=== PATIENT | male | born 1945 | race Caucasian/White ===

== ENCOUNTER → 2016-11-25 | Outpatient (CLI) | payer BC | END | disposition home or self-care (01) | LOC: RADPETMAIN 13:30 | PROVIDERS: ATTEND Internal Medicine | DX: Z53.9 Procedure and treatment not carried out, unspecified reason (principal) ==

== ENCOUNTER 2016-11-27 11:45 | Inpatient (IN) | payer BC, MEDICARE ==
[2016-11-27] MEDS ORDERED: HYDROmorphone 1 MG/ML 1 ML SYRINGE IVP STA (12:52)
[2016-11-27] MEDS ORDERED: SODIUM CHLORIDE 0.9% 500 ML IV STA (12:52)
[2016-11-27] MEDS ORDERED: BISACODYL 5 MG TABLET.DR PO PRN (13:15)
[2016-11-27] MEDS ORDERED: ONDANSETRON 4 MG/2 ML VIAL IVP PRN (13:15)
[2016-11-27] MEDS ORDERED: HYDROmorphone 1 MG/ML 1 ML SYRINGE IV PRN (13:15)
[2016-11-27] MEDS ORDERED: NALOXONE 0.4 MG/ML 1 ML VIAL IV PRN (13:15)
[2016-11-27] MEDS ORDERED: oxyCODONE-APAP 5-325MG 1 EACH TAB PO PRN (13:15)
--- NOTE | 2016-11-27 13:15 | ED ---
Back Pain HPI - General Chief Complaint: Back Pain/Injury Stated Complaint: back pain Source: patient Limitations: no limitations - History of Present Illness Initial Comments: 71-year-old male presenting for evaluation of low back pain and left thigh pain. Patient was recently diagnosed with lytic lesions to his lumbar spine and scapula and metastatic lesions to the liver and lung. He is continued to have worsening pain since these diagnoses have been made. The patient called his primary care physician Dr. Schneider who after discussion with his Hem/Onc specialist Dr. Velarde determined that he should be admitted for pain management, PET scan, and possible initiation of radiation treatment. He denies LE weakness, bladder/bowel incontinence, saddle anesthesia, fever, chills. - Related Data Home Medications Medication Instructions Recorded Confirmed Aspirin EC [Ecotrin Low Dose] 162 mg PO DAILY 11/27/16 11/27/16 Carvedilol [Coreg] 3.125 mg PO BID 11/27/16 11/27/16 Cyclobenzaprine [Flexeril] 10 mg PO TID PRN 11/27/16 11/27/16 Lisinopril [Zestril] 5 mg PO DAILY 11/27/16 11/27/16 Morphine Sulfate [Morphine Sulfate 50 mg PO Q4H PRN 11/27/16 11/27/16 Oral Solution] oxyCODONE-APAP 7.5-325MG [Percocet 1 tab PO Q4H PRN 11/27/16 11/27/16 7.5-325 mg] Allergies Allergy/AdvReac Type Severity Reaction Status Date / Time No Known Allergies Allergy Verified 11/27/16 12:04 Review of Systems ROS Statement: Those systems with pertinent positive or pertinent negative responses have been documented in the HPI. ROS Other: All systems not noted in ROS Statement are negative. Constitutional: Denies: fever, chills Eyes: Denies: eye pain, eye discharge ENT: Denies: ear pain, throat pain Respiratory: Denies: cough, dyspnea Cardiovascular: Denies: chest pain, palpitations Endocrine: Denies: fatigue, heat or cold intolerance Gastrointestinal: Denies: abdominal pain, nausea, vomiting Genitourinary: Denies: urgency, dysuria Musculoskeletal: Reports: arthralgia (back, bilateral hips), myalgia (left thigh ). Denies: back pain Skin: Denies: rash, lesions Neurological: Denies: headache, weakness Psychiatric: Denies: anxiety, depression Hematological/Lymphatic: Denies: easy bleeding, easy bruising Past Medical History Past Medical History: Cancer, Diabetes Mellitus, Hyperlipidemia, Hypertension Additional Past Medical History / Comment(s): back pain History of Any Multi-Drug Resistant Organisms: None Reported Past Surgical History: Heart Catheterization With Stent, Hernia Repair Additional Past Surgical History / Comment(s): double hernia surgery Past Psychological History: No Psychological Hx Reported Smoking Status: Former smoker Past Alcohol Use History: Occasional Past Drug Use History: None Reported General Exam Limitations: no limitations General appearance: alert, in no apparent distress Head exam: Present: atraumatic, normocephalic, normal inspection Eye exam: Present: normal appearance, PERRL, EOMI. Absent: scleral icterus, conjunctival injection, periorbital swelling ENT exam: Present: normal exam, mucous membranes moist Neck exam: Present: normal inspection. Absent: tenderness, meningismus, lymphadenopathy Respiratory exam: Present: normal lung sounds bilaterally. Absent: respiratory distress, wheezes, rales, rhonchi, stridor Cardiovascular Exam: Present: regular rate, normal rhythm, normal heart sounds. Absent: systolic murmur, diastolic murmur, rubs, gallop, clicks GI/Abdominal exam: Present: soft, normal bowel sounds. Absent: distended, tenderness, guarding, rebound, rigid Rectal exam: Present: deferred Extremities exam: Present: normal inspection, full ROM, normal capillary refill. Absent: tenderness, pedal edema, joint swelling, calf tenderness Back exam: Present: full ROM, tenderness, paraspinal tenderness Neurological exam: Present: alert, oriented X3, CN II-XII intact Psychiatric exam: Present: normal affect, normal mood Skin exam: Present: warm, dry, intact, normal color. Absent: rash Course Vital Signs 11/27/16 11/27/16 11/27/16 11:51 12:13 13:30 Temperature 97.5 F L 97.3 F L 98.1 F Pulse Rate 118 H 116 H 112 H Respiratory 18 24 20 Rate Blood Pressure 133/75 140/70 126/59 O2 Sat by Pulse 95 94 L 89 L Oximetry Medical Decision Making - Medical Decision Making 71-year-old male recently diagnosed with metastases to the lumbar spine, liver, lung, and right scapula presented for evaluation of worsening low back pain with radiation to the hips and left thigh. After discussion with his primary care physician Dr. Schneider it was determined that he would be admitted for further treatment via pain control and radiation therapy as well as evaluation with PET scan. Pt pain controlled and admitted to Dr. Ken. Admission order placed and bed request submitted. - Lab Data Result diagrams: 11/27/16 13:20 11/27/16 13:20 Lab Results 11/27/16 11/27/16 Range/Units 13:20 13:20 WBC 13.6 H (3.8-10.6) k/uL RBC 5.26 (4.30-5.90) m/uL Hgb 14.8 (13.0-17.5) gm/dL Hct 45.8 (39.0-53.0) % MCV 86.9 (80.0-100.0) fL MCH 28.1 (25.0-35.0) pg MCHC 32.4 (31.0-37.0) g/dL RDW 14.4 (11.5-15.5) % Plt Count 329 (150-450) k/uL Neutrophils % 78 % Lymphocytes % 13 % Monocytes % 6 % Eosinophils % 0 % Basophils % 1 % Neutrophils # 10.6 H (1.3-7.7) k/uL Lymphocytes # 1.7 (1.0-4.8) k/uL Monocytes # 0.8 (0-1.0) k/uL Eosinophils # 0.1 (0-0.7) k/uL Basophils # 0.2 (0-0.2) k/uL Sodium 135 L (137-145) mmol/L Potassium 5.6 H (3.5-5.1) mmol/L Chloride 97 L (98-107) mmol/L Carbon Dioxide 22 (22-30) mmol/L Anion Gap 16 mmol/L BUN 26 H (9-20) mg/dL Creatinine 0.92 (0.66-1.25) mg/dL Est GFR (MDRD) Af Amer >60 (>60 ml/min/1.73 sqM) Est GFR (MDRD) Non-Af >60 (>60 ml/min/1.73 sqM) Glucose 322 H (74-99) mg/dL Calcium 10.6 H (8.4-10.2) mg/dL Total Bilirubin 1.1 (0.2-1.3) mg/dL AST 121 H (17-59) U/L ALT 190 H (21-72) U/L Alkaline Phosphatase 209 H (38-126) U/L Total Protein 7.8 (6.3-8.2) g/dL Albumin 4.5 (3.5-5.0) g/dL 11/27/16 13:54 EKG shows sinus tachycardia with ventricular rate of 108, SCOTTY 156, QRS 112, QT/ QTC 346/463. Disposition Clinical Impression: Intractable low back pain Disposition: ADMITTED IP TO THIS HOSP Referrals: Aramis Schneider MD [Primary Care Provider] - 1-2 days Decision to Admit Reason: Admit from [facility] Decision Date: 11/27/16 Decision Time: 13:14
[2016-11-27 13:39] LABS: Basophils # (A) 0.2 k/uL (0-0.2); Basophils % (A) 1 %; CH 29.3; CHCM 33.9; Eosinophils # (A) 0.1 k/uL (0-0.7); Eosinophils % (A) 0 %; HCT 45.8 % (39.0-53.0); HDW 2.43; HGB 14.8 gm/dL (13.0-17.5); Luc # (Auto) 0.24; Luc % (Auto) 2; Lymphocytes # (A) 1.7 k/uL (1.0-4.8); Lymphocytes % (A) 13 %; MCH 28.1 pg (25.0-35.0); MCHC 32.4 g/dL (31.0-37.0); MCV 86.9 fL (80.0-100.0); Mean Platelet Volume 7.6; Monocytes # (A) 0.8 k/uL (0-1.0); Monocytes % (A) 6 %; Neutrophils # (A) 10.6 k/uL (1.3-7.7); Neutrophils % (A) 78 %; RBC 5.26 m/uL (4.30-5.90); RDW 14.4 % (11.5-15.5); WBC 13.6 k/uL (3.8-10.6); WBC (Perox) 12.81
[2016-11-27 13:48] LABS: ALT 190 U/L (21-72); AST 121 U/L (17-59); Alkaline Phosphatase 209 U/L (38-126); Anion Gap 16 mmol/L; Blood Urea Nitrogen 26 mg/dL (9-20); Calcium 10.6 mg/dL (8.4-10.2); Carbon Dioxide 22 mmol/L (22-30); Chloride 97 mmol/L (98-107); Glucose 322 mg/dL (74-99); Non-African American GFR(MDRD) >60 (>60 ml/min/1.73 sqM); Potassium 5.6 mmol/L (3.5-5.1); Sodium 135 mmol/L (137-145); Total Bilirubin 1.1 mg/dL (0.2-1.3); Total Protein 7.8 g/dL (6.3-8.2)
[2016-11-27 16:06] LABS: Glucose,Whole Blood 236 mg/dL (75-99)
[2016-11-27 17:25] LABS: Glucose,Whole Blood 261 mg/dL (75-99)
[2016-11-27] MEDS: MORPHINE ORAL SOLN 20 MG/1 ML ORAL SYRINGE PO PRN (17:47)
[2016-11-27] MEDS: CARVEDILOL 3.125 MG TAB PO SCH (17:51)
[2016-11-27 20:10] LABS: Glucose,Whole Blood 279 mg/dL (75-99)
[2016-11-27] MEDS: CYCLOBENZAPRINE 10 MG TAB PO PRN (21:16)
--- NOTE | 2016-11-27 22:17 | P.HPIM ---
History of Present Illness H&P Date: 11/27/16 Chief Complaint: Worsening back pain 71-year-old male with a known history of hypertension, hyperlipidemia , diabetes type 2 and previous history of smoking and recently being worked up for malignancy presenting for evaluation of low back pain and left thigh pain. Patient was recently diagnosed with lytic lesions to his lumbar spine and scapula and metastatic lesions to the liver and lung. He is continued to have worsening pain since these diagnoses have been made. Patient initially went to orthopedic clinic about 14 weeks ago for back pain and underwent physical therapy and pain management. Patient recently had MRI about 2 weeks ago which showed multiple metastatic lesions and lighting bone lesions. Patient is supposed to follow with Dr. Brito tomorrow. The patient called his primary care physician Dr. Schneider who after discussion with his Hem/Onc specialist Dr. Velarde determined that he should be admitted for pain management, PET scan, and possible initiation of radiation treatment. He denies LE weakness, bladder/bowel incontinence, saddle anesthesia, fever, chills. Review of Systems CONSTITUTIONAL: No fever, no malaise, no fatigue. HEENT: No recent visual problems or hearing problems. Denied any sore throat. CARDIOVASCULAR: No chest pain, orthopnea, PND, no palpitations, no syncope. PULMONARY: , no hemoptysis. GASTROINTESTINAL: No diarrhea, no nausea, no vomiting, no abdominal pain. Normoactive bowel sounds. NEUROLOGICAL: No headaches, no weakness, no numbness. HEMATOLOGICAL: Denies any bleeding or petechiae. GENITOURINARY: Denies any burning micturition, frequency, or urgency. MUSCULOSKELETAL/RHEUMATOLOGICAL: Patient does have back pain, left iliac pain. ENDOCRINE: Denies any polyuria or polydipsia. The rest of the 14-point review of systems is negative. Past Medical History Past Medical History: Cancer, Diabetes Mellitus, Hyperlipidemia, Hypertension Additional Past Medical History / Comment(s): back pain History of Any Multi-Drug Resistant Organisms: None Reported Past Surgical History: Heart Catheterization With Stent, Hernia Repair Additional Past Surgical History / Comment(s): double hernia surgery Past Anesthesia/Blood Transfusion Reactions: Motion Sickness Date of Last Stent Placement:: UNK Past Psychological History: No Psychological Hx Reported Smoking Status: Former smoker Past Alcohol Use History: Occasional Past Drug Use History: None Reported - Past Family History Father Family Medical History: Diabetes Mellitus Mother Family Medical History: Deep Vein Thrombosis (DVT) Medications and Allergies Home Medications Medication Instructions Recorded Confirmed Type Aspirin EC [Ecotrin Low Dose] 162 mg PO DAILY 11/27/16 11/27/16 History Carvedilol [Coreg] 3.125 mg PO BID 11/27/16 11/27/16 History Cyclobenzaprine [Flexeril] 10 mg PO TID PRN 11/27/16 11/27/16 History Lisinopril [Zestril] 5 mg PO DAILY 11/27/16 11/27/16 History Morphine Sulfate [Morphine Sulfate 50 mg PO Q4H PRN 11/27/16 11/27/16 History Oral Solution] oxyCODONE-APAP 7.5-325MG [Percocet 1 tab PO Q4H PRN 11/27/16 11/27/16 History 7.5-325 mg] Allergies Allergy/AdvReac Type Severity Reaction Status Date / Time No Known Allergies Allergy Verified 11/27/16 12:04 Physical Exam Vitals: Vital Signs Temp Pulse Pulse Resp BP BP Pulse Ox 11/27/16 17:00 97.3 F L 113 H 18 135/89 11/27/16 15:39 104 H 20 133/67 95 11/27/16 14:30 111 H 20 95 11/27/16 13:30 98.1 F 112 H 20 126/59 89 L 11/27/16 12:13 97.3 F L 116 H 24 140/70 94 L 11/27/16 11:51 97.5 F L 118 H 18 133/75 95 Intake and Output 11/27/16 11/27/16 11/27/16 06:59 14:59 22:59 Other: Weight 91.172 kg Patient Weight 11/28/16 06:59 Weight 91.172 kg PHYSICAL EXAMINATION: Patient is lying in the bed comfortably, no acute distress, awake alert and oriented.. HEENT: Normocephalic. Neck is supple. Pupils reactive. Nostrils clear. Oral cavity is moist. Ears reveal no drainage. Neck reveals no JVD, carotid bruits, or thyromegaly. CHEST EXAMINATION: Trachea is central. Symmetrical expansion. Lung loza clear to auscultation and percussion. CARDIAC: Normal S1, S2 with no gallops. No murmurs ABDOMEN: Soft. Bowel sounds normal. No organomegaly. No abdominal bruits. Extremities reveal no edema. No clubbing or cyanosis Neurologically awake, alert, oriented x3 with well-coordinated movements. Skin: no rash or skin lesions Musculoskeletal: no joint swelling or deformity. Results CBC & Chem 7: 11/27/16 13:20 11/27/16 13:20 Labs: Abnormal Lab Results - Last 24 Hours (Table) 11/27/16 11/27/16 11/27/16 Range/Units 13:20 13:20 13:20 WBC 13.6 H (3.8-10.6) k/uL Neutrophils # 10.6 H (1.3-7.7) k/uL Sodium 135 L (137-145) mmol/L Potassium 5.6 H (3.5-5.1) mmol/L Chloride 97 L (98-107) mmol/L BUN 26 H (9-20) mg/dL Glucose 322 H (74-99) mg/dL POC Glucose (mg/dL) (75-99) mg/dL Calcium 10.6 H (8.4-10.2) mg/dL AST 121 H (17-59) U/L ALT 190 H (21-72) U/L Alkaline Phosphatase 209 H (38-126) U/L Lipase 422 H (23-300) U/L 11/27/16 11/27/16 11/27/16 Range/Units 16:04 17:21 20:09 WBC (3.8-10.6) k/uL Neutrophils # (1.3-7.7) k/uL Sodium (137-145) mmol/L Potassium (3.5-5.1) mmol/L Chloride (98-107) mmol/L BUN (9-20) mg/dL Glucose (74-99) mg/dL POC Glucose (mg/dL) 236 H 261 H 279 H (75-99) mg/dL Calcium (8.4-10.2) mg/dL AST (17-59) U/L ALT (21-72) U/L Alkaline Phosphatase (38-126) U/L Lipase (23-300) U/L Thrombosis Risk Factor Assmnt - DVT/VTE Prophylaxis DVT/VTE Prophylaxis: Pharmacologic Prophylaxis ordered Assessment and Plan Plan: #1 lower back pain and left-sided pain due to metastatic lesions #2 recently diagnosed malignancy with lung mass, liver lesions and bone lesions. Primary unknown at this time #3 hypertension #4 hyperlipidemia #5 diabetes type 2 with hyperglycemia #6 hypovolemic hyponatremia #7 mild hyperkalemia #8 dehydration and volume depletion with elevated BUN #9 mild leukocytosis DVT prophylaxis Plan: Patient will be continued on Roxanol for pain management and supportive care. Oncology has been consulted and possible biopsy and radiation therapy. Prognosis is poor. We will follow closely and further recommendations based on the clinical course. Time with Patient: Greater than 30
[2016-11-28] MEDS: MORPHINE ORAL SOLN 20 MG/1 ML ORAL SYRINGE PO PRN ×2 (01:52→05:28)
[2016-11-28] MEDS: CYCLOBENZAPRINE 10 MG TAB PO PRN ×2 (06:21→21:31)
[2016-11-28 07:09] LABS: Glucose,Whole Blood 231 mg/dL (75-99)
[2016-11-28 07:37] LABS: Basophils # (A) 0.1 k/uL (0-0.2); Basophils % (A) 1 %; CH 29.6; CHCM 34.4; Eosinophils # (A) 0.1 k/uL (0-0.7); Eosinophils % (A) 0 %; HCT 43.9 % (39.0-53.0); HDW 2.47; HGB 14.4 gm/dL (13.0-17.5); Luc # (Auto) 0.38; Luc % (Auto) 2; Lymphocytes # (A) 2.6 k/uL (1.0-4.8); Lymphocytes % (A) 16 %; MCH 28.4 pg (25.0-35.0); MCHC 32.9 g/dL (31.0-37.0); MCV 86.4 fL (80.0-100.0); Mean Platelet Volume 8.7; Monocytes # (A) 1.2 k/uL (0-1.0); Monocytes % (A) 8 %; Neutrophils # (A) 11.5 k/uL (1.3-7.7); Neutrophils % (A) 73 %; RBC 5.08 m/uL (4.30-5.90); RDW 14.1 % (11.5-15.5); WBC 15.9 k/uL (3.8-10.6); WBC (Perox) 15.39
[2016-11-28 08:08] LABS: ALT 179 U/L (21-72); AST 112 U/L (17-59); Alkaline Phosphatase 202 U/L (38-126); Anion Gap 13 mmol/L; Blood Urea Nitrogen 23 mg/dL (9-20); Calcium 10.2 mg/dL (8.4-10.2); Carbon Dioxide 22 mmol/L (22-30); Chloride 99 mmol/L (98-107); Glucose 258 mg/dL (74-99); Magnesium 1.9 mg/dL (1.6-2.3); Non-African American GFR(MDRD) >60 (>60 ml/min/1.73 sqM); Phosphorous 4.1 mg/dL (2.5-4.5); Sodium 134 mmol/L (137-145); Total Bilirubin 1.1 mg/dL (0.2-1.3)
[2016-11-28 08:18] LABS: Potassium 5.5 mmol/L (3.5-5.1)
[2016-11-28] MEDS ORDERED: ASPIRIN 81 MG CHEW PO SCH (09:00)
[2016-11-28] MEDS ORDERED: DEXAMETHASONE SOD PHOSPHATE 4 MG/ML 1 ML VIAL IV PRN (09:34)
[2016-11-28] MEDS ORDERED: IOHEXOL 350 MG/ML 25 ML BOTTLE (ORAL USE) PO PRN (09:37)
[2016-11-28] MEDS ORDERED: RX INFO: IV CONTRAST WAS GIVEN 1 EACH MISC MISCELLANE PRN (09:37)
[2016-11-28] MEDS: MORPHINE SULFATE 4 MG/ML SYRINGE IVP PRN ×3 (09:48→19:59)
[2016-11-28] MEDS: CARVEDILOL 3.125 MG TAB PO SCH ×2 (09:53→16:36)
[2016-11-28] MEDS: ENOXAPARIN 40 MG/0.4 ML SYRINGE SQ SCH (09:53)
[2016-11-28] MEDS: LISINOPRIL 5 MG TAB PO SCH (09:53)
[2016-11-28] MEDS: INSULIN LISPRO (humaLOG) 300 UNIT/3 ML VIAL SQ SCH ×4 (09:56→21:31)
[2016-11-28 11:00] LABS: Glucose,Whole Blood 244 mg/dL (75-99)
[2016-11-28] MEDS: SODIUM CHLORIDE 0.9% 1,000 ML IV SCH (16:46)
[2016-11-28 16:53] LABS: Glucose,Whole Blood 184 mg/dL (75-99)
--- NOTE | 2016-11-28 20:37 | XR ---
EXAMINATION TYPE: XR chest 2V DATE OF EXAM: 11/28/2016 COMPARISON: None available. HISTORY: History of lung, brain carcinoma TECHNIQUE: Frontal and lateral views of the chest are obtained. FINDINGS: There is an approximately 10 cm mean diameter pyramidal-shaped bronchogenic mass in the fa r right lateral position. There is a platelike band of added opacity at the left lung base, with elev ated hemidiaphragm, consistent with platelike atelectasis. There is no evidence of pulmonary edema. Is no pneumothorax or other abnormal gas collection. There is mild/moderate enlargement of the cardiac silhouette. The skeletal structures are unremarkabl e. There are gas-distended loops of bowel in the left upper quadrant. No evident pneumoperitoneum. IMPRESSION: 10 cm mean diameter pyramidal-shaped bronchogenic mass in the far right lateral position.
[2016-11-28 20:43] LABS: Glucose,Whole Blood 247 mg/dL (75-99)
[2016-11-28] MEDS: INSULIN GLARGINE 100 UNIT/ML 10 ML VIAL SQ SCH (21:30)
--- NOTE | 2016-11-28 23:30 | P.CONS ---
History of Present Illness - Reason for Consult Consult date: 11/28/16 Metastatic malignancy, intractable cancer related pain - History of Present Illness The patient is a 71-year-old gentleman with overall well controlled medical problems. 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 A couple of months ago, he developed some increase in mid back pain. He states that he had few weeks of physical therapy without much improvement. He had an MRI about 3 weeks ago that was abnormal. This led to additional imaging , which she believes for CT scans. Apparently they showed a mass in the right lung, as well as lesions in the liver. A referral was made to Dr. Swenson. He was set up for a PET scan on 11/25/16, but could not have that done because of increased blood sugar. Over the last 2 weeks, his pain has been steadily increasing in the mid back. The patient states that it is relieved partially, if he is still on his back , but any attempt at sitting up or weightbearing exacerbates his significantly. Because of his increasing pain, which had become intractable, Dr. Swenson was contacted by his PCP It was recommended that he be admitted, for pain control as well as further workup. Consult was placed for further evaluation and recommendations. The patient denied any prior history of cancer. Other than the mid back pain , he also complains of heaviness and discomfort in the right upper quadrant, as well as decreased appetite and mild weight loss. Review of Systems Constitutional: Reports chronic pain, Reports poor appetite, Reports weakness, Reports weight loss Eyes: denies blurred vision, denies pain Ears: deny: decreased hearing, ear discharge, earache, tinnitus Ears, nose, mouth and throat: Denies headache, Denies sore throat Cardiovascular: Reports decreased exercise tolerance Respiratory: Denies cough Gastrointestinal: Reports abdominal pain, Reports loss of appetite Genitourinary: Reports as per HPI (No specific complaints) Musculoskeletal: Reports as per HPI, Reports low back pain, Reports muscle weakness Integumentary: Denies pruritus, Denies rash Neurological: Reports numbness (Left lower extremity, intermittently), Reports weakness Psychiatric: Denies anxiety, Denies depression Endocrine: Reports fatigue, Reports high blood sugars, Reports weight change Hematologic/Lymphatic: Reports as per HPI Past Medical History Past Medical History: Cancer, Diabetes Mellitus, Hyperlipidemia, Hypertension Additional Past Medical History / Comment(s): back pain History of Any Multi-Drug Resistant Organisms: None Reported Past Surgical History: Heart Catheterization With Stent, Hernia Repair Additional Past Surgical History / Comment(s): double hernia surgery Past Anesthesia/Blood Transfusion Reactions: Motion Sickness Date of Last Stent Placement:: UNK Past Psychological History: No Psychological Hx Reported Smoking Status: Former smoker Past Alcohol Use History: Occasional Past Drug Use History: None Reported - Past Family History Father Family Medical History: Diabetes Mellitus Mother Family Medical History: Deep Vein Thrombosis (DVT) Medications and Allergies Home Medications Medication Instructions Recorded Confirmed Type Aspirin EC [Ecotrin Low Dose] 162 mg PO DAILY 11/27/16 11/27/16 History Carvedilol [Coreg] 3.125 mg PO BID 11/27/16 11/27/16 History Cyclobenzaprine [Flexeril] 10 mg PO TID PRN 11/27/16 11/27/16 History Lisinopril [Zestril] 5 mg PO DAILY 11/27/16 11/27/16 History Morphine Sulfate [Morphine Sulfate 50 mg PO Q4H PRN 11/27/16 11/27/16 History Oral Solution] oxyCODONE-APAP 7.5-325MG [Percocet 1 tab PO Q4H PRN 11/27/16 11/27/16 History 7.5-325 mg] Allergies Allergy/AdvReac Type Severity Reaction Status Date / Time No Known Allergies Allergy Verified 11/27/16 12:04 Physical Exam Vitals: Vital Signs Temp Pulse Resp BP BP Pulse Ox 11/28/16 17:14 97 11/28/16 16:00 114 H 20 11/28/16 08:00 114 H 20 11/28/16 07:05 149/93 11/28/16 07:00 97.9 F 114 H 20 143/100 94 L Intake and Output 11/28/16 11/28/16 11/29/16 14:59 22:59 06:59 Other: Voiding Method Toilet Toilet Urinal Urinal # Voids 2 - Constitutional General appearance: mild distress - EENT Eyes: EOMI, PERRLA ENT: hearing grossly normal, normal oropharynx - Neck Neck: no lymphadenopathy Thyroid: bilateral: normal size - Respiratory Respiratory: bilateral: CTA - Cardiovascular Rhythm: regular Heart sounds: normal: S1, S2 - Gastrointestinal General gastrointestinal: hepatomegaly (2-3 fingers below costal margin), normal bowel sounds, soft Localized gastrointestinal: tender: RUQ - Integumentary Integumentary: normal - Neurologic Neurologic: CNII-XII intact - Musculoskeletal Musculoskeletal: generalized weakness, strength equal bilaterally - Psychiatric Psychiatric: A&O x's 3, appropriate affect Results CBC & Chem 7: 11/28/16 07:18 11/28/16 07:18 Labs: Abnormal Lab Results - Last 24 Hours (Table) 11/28/16 11/28/16 11/28/16 Range/Units 07:03 07:18 07:18 WBC 15.9 H (3.8-10.6) k/uL Neutrophils # 11.5 H (1.3-7.7) k/uL Monocytes # 1.2 H (0-1.0) k/uL Sodium 134 L (137-145) mmol/L Potassium 5.5 H (3.5-5.1) mmol/L BUN 23 H (9-20) mg/dL Glucose 258 H (74-99) mg/dL POC Glucose (mg/dL) 231 H (75-99) mg/dL AST 112 H (17-59) U/L ALT 179 H (21-72) U/L Alkaline Phosphatase 202 H (38-126) U/L 11/28/16 11/28/16 11/28/16 Range/Units 10:58 16:48 20:42 WBC (3.8-10.6) k/uL Neutrophils # (1.3-7.7) k/uL Monocytes # (0-1.0) k/uL Sodium (137-145) mmol/L Potassium (3.5-5.1) mmol/L BUN (9-20) mg/dL Glucose (74-99) mg/dL POC Glucose (mg/dL) 244 H 184 H 247 H (75-99) mg/dL AST (17-59) U/L ALT (21-72) U/L Alkaline Phosphatase (38-126) U/L Chest x-ray: report reviewed Assessment and Plan (1) Intractable low back pain Narrative/Plan: This is the main present complaint, leading to this admission. Pain was not controlled at home. Given the history, this is most likely malignancy related. Given the location of the pain, and the patient's complaints of intermittent left lower extremity weakness, there is also concern for early spinal cord or radicular involvement. - I will start the patient on a fentanyl patch. Discontinue the Dilaudid, which the patient states is not lasting long enough. I would also. By mouth morphine and by mouth Percocet, so that the patient can be on a single short- acting medication. IV morphine for breakthrough pain will be started - Given the location of the pain, and concern for early cord involvement, the patient will be started on IV steroids. These will likely also help with the pain. - Copy of the MRI result will be requested from [facility]. If needed, MRI will be repeated. -Radiation oncology consult will be placed, as it is anticipated that he will likely need palliative radiation down the line -If malignant bony involvement is confirmed, as suspected, IV bisphosphonates will also be started. Status: Acute (2) Metastatic cancer Narrative/Plan: Based on the available history, the patient appears to have metastatic malignancy. There appears to be bone, lung as well as liver involvement. Given his history of smoking, a lung primary with metastasis is the primary differential. - A PET scan could not be performed. However, with known widespread involvement, utility of the PET for staging is quite limited . CT of the chest abdomen and pelvis will be ordered. Imaging will be requested from [facility]. If the scans have been done in the recent past, then the scan ordered here will be canceled. Based on the scans, appropriate consult be placed to set up a biopsy for tissue diagnosis. Status: Acute Plan: Defer to the admitting service for management of his other medical problems
[2016-11-29] MEDS ORDERED: ZOLEDRONIC ACID 4 MG in SODIUM CHLORIDE 0.9% 100 ML IV ONE ×2
--- NOTE | 2016-11-29 00:21 | P.PN ---
Subjective Principal diagnosis: Acute lower back pain malignancy related 71-year-old male with a known history of hypertension, hyperlipidemia , diabetes type 2 and previous history of smoking and recently being worked up for malignancy presenting for evaluation of low back pain and left thigh pain. Patient was recently diagnosed with lytic lesions to his lumbar spine and scapula and metastatic lesions to the liver and lung. He is continued to have worsening pain since these diagnoses have been made. Patient initially went to orthopedic clinic about 14 weeks ago for back pain and underwent physical therapy and pain management. Patient recently had MRI about 2 weeks ago which showed multiple metastatic lesions and lighting bone lesions. Patient is supposed to follow with Dr. Brito tomorrow. The patient called his primary care physician Dr. Schneider who after discussion with his Hem/Onc specialist Dr. Velarde determined that he should be admitted for pain management, PET scan, and possible initiation of radiation treatment. He denies LE weakness, bladder/bowel incontinence, saddle anesthesia, fever, chills. 11/28/2016 Patient's lower back pain improved with pain medications. Oncology has been consulted. No fever no chills. Patient does have increased leukocytosis today. Denied any cough or sputum production. No dysuria. No complaints of chest pain. No worsening short of breath. Patient still having left hip area pain Chest x-ray showed 10 cm sized right bronchial mass. Imaging studies including MRI and CT scans from [place] will be obtained. Objective - Vital Signs Vital signs: Vital Signs Temp 97.9 F 11/28/16 07:00 Pulse 114 H 11/28/16 16:00 Resp 20 11/28/16 16:00 BP 149/93 11/28/16 07:05 Pulse Ox 97 11/28/16 17:14 Intake & Output 11/28/16 11/28/16 11/29/16 06:59 18:59 06:59 Intake Total 250 Output Total 300 Balance -50 Intake: Oral 250 Output: Urine 300 Other: Voiding Method Toilet Toilet Urinal Urinal # Voids 2 - Exam PHYSICAL EXAMINATION: Patient is lying in the bed comfortably, no acute distress, awake alert and oriented.. HEENT: Normocephalic. Neck is supple. Pupils reactive. Nostrils clear. Oral cavity is moist. Ears reveal no drainage. Neck reveals no JVD, carotid bruits, or thyromegaly. CHEST EXAMINATION: Trachea is central. Symmetrical expansion. Minimal crackles of the right base. No wheezing. CARDIAC: Normal S1, S2 with no gallops. No murmurs ABDOMEN: Soft. Bowel sounds normal. No organomegaly. No abdominal bruits. Extremities reveal no edema. No clubbing or cyanosis Neurologically awake, alert, oriented x3 with well-coordinated movements. Skin: no rash or skin lesions Musculoskeletal: no joint swelling or deformity. - Labs CBC & Chem 7: 11/28/16 07:18 11/28/16 07:18 Labs: Abnormal Lab Results - Last 24 Hours (Table) 11/28/16 11/28/16 11/28/16 Range/Units 07:03 07:18 07:18 WBC 15.9 H (3.8-10.6) k/uL Neutrophils # 11.5 H (1.3-7.7) k/uL Monocytes # 1.2 H (0-1.0) k/uL Sodium 134 L (137-145) mmol/L Potassium 5.5 H (3.5-5.1) mmol/L BUN 23 H (9-20) mg/dL Glucose 258 H (74-99) mg/dL POC Glucose (mg/dL) 231 H (75-99) mg/dL AST 112 H (17-59) U/L ALT 179 H (21-72) U/L Alkaline Phosphatase 202 H (38-126) U/L 11/28/16 11/28/16 11/28/16 Range/Units 10:58 16:48 20:42 WBC (3.8-10.6) k/uL Neutrophils # (1.3-7.7) k/uL Monocytes # (0-1.0) k/uL Sodium (137-145) mmol/L Potassium (3.5-5.1) mmol/L BUN (9-20) mg/dL Glucose (74-99) mg/dL POC Glucose (mg/dL) 244 H 184 H 247 H (75-99) mg/dL AST (17-59) U/L ALT (21-72) U/L Alkaline Phosphatase (38-126) U/L Assessment and Plan Plan: #1 lower back pain and left-sided pain due to metastatic lesions #2 recently diagnosed malignancy with lung mass, liver lesions and bone lesions. Most likely lung being primary. #3 hypertension #4 hyperlipidemia #5 diabetes type 2 with hyperglycemia #6 hypovolemic hyponatremia #7 mild hyperkalemia #8 dehydration and volume depletion with elevated BUN #9 mild leukocytosis DVT prophylaxis Plan: Patient will be continued on Roxanol for pain management and supportive care. Oncology has been consulted and possible biopsy and radiation therapy. Prognosis is poor. We will follow closely and further recommendations based on the clinical course.
[2016-11-29] MEDS: MORPHINE SULFATE 4 MG/ML SYRINGE IVP PRN ×2 (05:50→09:52)
[2016-11-29 07:45] LABS: Glucose,Whole Blood 198 mg/dL (75-99)
[2016-11-29] MEDS: INSULIN LISPRO (humaLOG) 300 UNIT/3 ML VIAL SQ SCH ×4 (08:21→21:55)
[2016-11-29] MEDS: ENOXAPARIN 40 MG/0.4 ML SYRINGE SQ SCH (08:22)
[2016-11-29 08:44] LABS: Anion Gap 14 mmol/L; Blood Urea Nitrogen 23 mg/dL (9-20); Calcium 9.8 mg/dL (8.4-10.2); Carbon Dioxide 17 mmol/L (22-30); Chloride 102 mmol/L (98-107); Glucose 180 mg/dL (74-99); Non-African American GFR(MDRD) >60 (>60 ml/min/1.73 sqM); Sodium 133 mmol/L (137-145)
[2016-11-29] MEDS: LISINOPRIL 5 MG TAB PO SCH (08:45)
[2016-11-29] MEDS: CARVEDILOL 3.125 MG TAB PO SCH ×2 (08:45→21:23)
[2016-11-29 09:33] LABS: INR 1.1 (<1.2); Prothrombin Time 10.9 sec (9.0-12.0)
[2016-11-29 09:37] LABS: Basophils # (A) 0.1 k/uL (0-0.2); Basophils % (A) 0 %; CHCM 31.8; Eosinophils % (A) 0 %; HCT 43.6 % (39.0-53.0); HDW 2.46; HGB 14.2 gm/dL (13.0-17.5); Luc # (Auto) 0.21; Luc % (Auto) 2; Lymphocytes # (A) 1.2 k/uL (1.0-4.8); Lymphocytes % (A) 10 %; MCH 28.8 pg (25.0-35.0); MCHC 32.6 g/dL (31.0-37.0); MCV 88.4 fL (80.0-100.0); Mean Platelet Volume 7.2; Monocytes # (A) 0.7 k/uL (0-1.0); Monocytes % (A) 6 %; Neutrophils # (A) 9.1 k/uL (1.3-7.7); Neutrophils % (A) 81 %; RBC 4.93 m/uL (4.30-5.90); RDW 13.3 % (11.5-15.5); WBC 11.3 k/uL (3.8-10.6); WBC (Perox) 11.85
[2016-11-29] MEDS: SODIUM CHLORIDE 0.9% 1,000 ML IV SCH (09:54)
[2016-11-29 11:47] LABS: Glucose,Whole Blood 178 mg/dL (75-99)
[2016-11-29] MEDS: oxyCODONE ER 15 MG TAB.ER.12H PO SCH ×2 (12:31→15:14)
[2016-11-29 13:46] LABS: Appearance,Urine Clear (Clear); Bilirubin,Urine Negative (Negative); Glucose,Urine (UA) 2+ (Negative); Leukocyte Esterase,Urine Negative (Negative); Nitrite,Urine Negative (Negative); PH, Urine 5.5 (5.0-8.0); Protein,Urine Trace (Negative); Specific Gravity,Urine 1.024 (1.001-1.035); UA Billing (MACRO vs. MICRO) CHEM
--- NOTE | 2016-11-29 14:33 | P.CONS ---
History of Present Illness - Reason for Consult Consult date: 11/28/16 Lumbar pain with lesions concerning for metastasis Requesting physician: Asif Crespo - Chief Complaint I have severe back pain - History of Present Illness Mr. Hawk is a 71-year-old with a 6 week history of lumbar back pain. He underwent MRI about 3 weeks ago that was abnormal. This led to additional imaging CT of the chest/abdomen/pelvis which identified a mass in the right lung , as well as lesions in the liver. A referral was made to Dr. Swenson. He was set up for a PET scan on 11/25/16, but could not have that done because of hyperglycemia. Over the last 2 weeks, his pain has been steadily increasing in the lumbar spine making it difficult to ambulate. He was evaluated in [facility] and later transferred here for additional management for his intractable back pain. The patient denied any prior history of malignancy. He complains of multiple sites of bony pain including his lumbar spine, right flank, and right scapula. He denies weight loss, hemoptysis, headaches or vision changes. . Review of Systems Constitutional: Reports chronic pain Eyes: denies blurred vision, denies pain Cardiovascular: Denies chest pain, Denies shortness of breath Respiratory: Reports cough with sputum, Reports dyspnea Musculoskeletal: Reports limitation of motion, Reports low back pain Past Medical History Past Medical History: Cancer, Diabetes Mellitus, Hyperlipidemia, Hypertension Additional Past Medical History / Comment(s): back pain History of Any Multi-Drug Resistant Organisms: None Reported Past Surgical History: Heart Catheterization With Stent, Hernia Repair Additional Past Surgical History / Comment(s): double hernia surgery Past Anesthesia/Blood Transfusion Reactions: Motion Sickness Date of Last Stent Placement:: UNK Past Psychological History: No Psychological Hx Reported Smoking Status: Former smoker Past Alcohol Use History: Occasional Past Drug Use History: None Reported - Past Family History Father Family Medical History: Diabetes Mellitus Mother Family Medical History: Deep Vein Thrombosis (DVT) Medications and Allergies Home Medications Medication Instructions Recorded Confirmed Type Aspirin EC [Ecotrin Low Dose] 162 mg PO DAILY 11/27/16 11/27/16 History Carvedilol [Coreg] 3.125 mg PO BID 11/27/16 11/27/16 History Cyclobenzaprine [Flexeril] 10 mg PO TID PRN 11/27/16 11/27/16 History Lisinopril [Zestril] 5 mg PO DAILY 11/27/16 11/27/16 History Morphine Sulfate [Morphine Sulfate 50 mg PO Q4H PRN 11/27/16 11/27/16 History Oral Solution] oxyCODONE-APAP 7.5-325MG [Percocet 1 tab PO Q4H PRN 11/27/16 11/27/16 History 7.5-325 mg] Allergies Allergy/AdvReac Type Severity Reaction Status Date / Time No Known Allergies Allergy Verified 11/27/16 12:04 Physical Exam Vitals: Vital Signs Temp Pulse Resp BP Pulse Ox 11/29/16 08:00 109 H 20 11/29/16 07:00 96.9 F L 109 H 20 126/86 96 11/29/16 00:00 20 11/28/16 17:14 97 11/28/16 16:00 114 H 20 Intake and Output 11/28/16 11/29/16 11/29/16 22:59 06:59 14:59 Intake Total 590 Output Total 250 300 Balance -250 290 Intake: Oral 590 Output: Urine 250 300 Other: Voiding Method Toilet Urinal Urinal Urinal - Constitutional General appearance: average body habitus, mild distress - EENT Eyes: PERRLA - Neck Neck: no lymphadenopathy - Respiratory Respiratory: right: CTA, left: diminished - Cardiovascular Rhythm: regular (Tenderness to palpation in lower thoracic/upper lumbar spine.) Results CBC & Chem 7: 11/29/16 07:25 11/29/16 07:25 Labs: Abnormal Lab Results - Last 24 Hours (Table) 11/28/16 11/28/16 11/28/16 Range/Units 12:40 16:48 20:42 WBC (3.8-10.6) k/uL Neutrophils # (1.3-7.7) k/uL Sodium (137-145) mmol/L Carbon Dioxide (22-30) mmol/L BUN (9-20) mg/dL Glucose (74-99) mg/dL POC Glucose (mg/dL) 184 H 247 H (75-99) mg/dL Urine Protein Trace H (Negative) Urine Glucose (UA) 2+ H (Negative) 11/29/16 11/29/16 11/29/16 Range/Units 07:25 07:25 07:42 WBC 11.3 H (3.8-10.6) k/uL Neutrophils # 9.1 H (1.3-7.7) k/uL Sodium 133 L (137-145) mmol/L Carbon Dioxide 17 L (22-30) mmol/L BUN 23 H (9-20) mg/dL Glucose 180 H (74-99) mg/dL POC Glucose (mg/dL) 198 H (75-99) mg/dL Urine Protein (Negative) Urine Glucose (UA) (Negative) 11/29/16 Range/Units 11:43 WBC (3.8-10.6) k/uL Neutrophils # (1.3-7.7) k/uL Sodium (137-145) mmol/L Carbon Dioxide (22-30) mmol/L BUN (9-20) mg/dL Glucose (74-99) mg/dL POC Glucose (mg/dL) 178 H (75-99) mg/dL Urine Protein (Negative) Urine Glucose (UA) (Negative) Assessment and Plan Plan: is a 71 year old male with imaging in [place] consistent with a 7cm mass in the lateral portion of the right lung, hypodensities in both lobes of the liver, and widely distributed skeletal metastasis with associated vertebral compression fractures. We did discuss the need for histologic confirmation of what is likely metastatic lung cancer as the etiology of his severe lumbar pain. Navi has been initiated on narcotic pain medication with some improvement in function. He will require CT guided biopsy of large left sided lung mass with subsequent plans for palliation of vertebral fractures with external beam radiation. Mr. Hawk will require MRI of his craniospinal axis after biopsy although appears clinically neurologically stable. I have discussed the likelihood of biopsy to be performed on 11/29/2016 with ideally preliminary read of pathology the following day. Should we have confirmation of malignancy we will simulate and deliver Mr. Murphy first fraction of radiation that afternoon. Navi acknowledges understanding of that plan. Time with Patient: Greater than 30
[2016-11-29 14:54] LABS: Ketones,Urine 2+ (Negative)
[2016-11-29] MEDS ORDERED: RX INFO: IV CONTRAST WAS GIVEN 1 EACH MISC MISCELLANE PRN (15:40)
--- NOTE | 2016-11-29 17:01 | CT ---
EXAMINATION TYPE: CT chest w con DATE OF EXAM: 11/29/2016 COMPARISON: Chest x-ray 11/28/2016 HISTORY: shortness of breath and chest discomfort CT DLP: 726 mGycm Automated exposure control for dose reduction was used. CONTRAST: CT scan of the chest is performed with IV Contrast, patient injected with 100 mL of Omnipaque 300. FINDINGS: LUNGS: There are extensive centrilobular emphysematous changes present. Pleural-based right upper lob e mass shows lobular contours and measures approximately 10 cm in AP dimension by approximately 7.3 c m in cranial to caudal dimension by approximately 4.9 cm in greatest transverse dimension. There is a large right hilar mass compatible with adenopathy measuring 5.3 cm in greatest dimension. Subcarinal node appears calcified. Small right pleural effusion is present, dependent atelectatic change suspec poornima on the left. There is a calcified granuloma in the right lower lobe. MEDIASTINUM: Right hilar node is enlarged. There are coronary artery calcifications. No pericardial e ffusion. AORTA: No additional significant abnormality is seen. OTHER: Multiple foci of low attenuation are scattered within the liver, the largest is approximately 2 cm. The liver is partially visualized, there may be 30 or more lesions present scattered throughou t the liver.. Right adrenal nodularity present measuring 17 mm, there may be minimal nodularity to th e left adrenal gland measuring 1 cm. Calcified granuloma are present within the spleen. Scattered lytic foci are present throughout the spine with a lesion at the third thoracic vertebral b edenilson showing some extension into the spinal canal and destruction extending from vertebral body to the posterior elements to the right of midline, additional lytic lesions are present within the thoracic spine. IMPRESSION: Metastatic disease to the liver and skeleton. Findings compatible with bronchogenic carc inoma.
[2016-11-29 17:14] LABS: Glucose,Whole Blood 158 mg/dL (75-99)
[2016-11-29] MEDS ORDERED: MORPHINE SULFATE 10 MG/ML SYRINGE IM PRN (18:39)
--- NOTE | 2016-11-29 19:18 | P.PN ---
Subjective Principal diagnosis: Intractable, cancer related pain Metastatic malignancy Objective - Vital Signs Vital signs: Vital Signs Temp 97.4 F L 11/29/16 15:00 Pulse 129 H 11/29/16 17:00 Resp 15 11/29/16 17:00 BP 133/82 11/29/16 15:00 Pulse Ox 93 L 11/29/16 15:00 Intake & Output 11/29/16 11/29/16 11/30/16 06:59 18:59 06:59 Intake Total 590 590 Output Total 550 300 Balance 40 290 Weight 91.172 kg Intake: Intake, IV Titration 350 Amount Sodium Chloride 0.9% 1, 350 000 ml @ 50 mls/hr IV . Q20H [facility] Rx#:[id number] Oral 590 240 Output: Urine 550 300 Other: Voiding Method Urinal Urinal # Voids 2 - Constitutional General appearance: Present: no acute distress - EENT Eyes: Present: EOMI, PERRLA ENT: Present: hearing grossly normal, normal oropharynx - Respiratory Respiratory: bilateral: CTA - Cardiovascular Rhythm: regular Heart sounds: normal: S1, S2 - Gastrointestinal General gastrointestinal: Present: normal bowel sounds, soft - Integumentary Integumentary: Present: normal - Neurologic Neurologic: Present: CNII-XII intact - Musculoskeletal Musculoskeletal: Present: generalized weakness, strength equal bilaterally - Psychiatric Psychiatric: Present: A&O x's 3 - Labs CBC & Chem 7: 11/29/16 07:25 11/29/16 07:25 Labs: Abnormal Lab Results - Last 24 Hours (Table) 11/28/16 11/28/16 11/29/16 Range/Units 12:40 20:42 07:25 WBC 11.3 H (3.8-10.6) k/uL Neutrophils # 9.1 H (1.3-7.7) k/uL Sodium (137-145) mmol/L Carbon Dioxide (22-30) mmol/L BUN (9-20) mg/dL Glucose (74-99) mg/dL POC Glucose (mg/dL) 247 H (75-99) mg/dL Urine Protein Trace H (Negative) Urine Glucose (UA) 2+ H (Negative) Urine Ketones 2+ H (Negative) 11/29/16 11/29/16 11/29/16 Range/Units 07:25 07:42 11:43 WBC (3.8-10.6) k/uL Neutrophils # (1.3-7.7) k/uL Sodium 133 L (137-145) mmol/L Carbon Dioxide 17 L (22-30) mmol/L BUN 23 H (9-20) mg/dL Glucose 180 H (74-99) mg/dL POC Glucose (mg/dL) 198 H 178 H (75-99) mg/dL Urine Protein (Negative) Urine Glucose (UA) (Negative) Urine Ketones (Negative) 11/29/16 Range/Units 17:11 WBC (3.8-10.6) k/uL Neutrophils # (1.3-7.7) k/uL Sodium (137-145) mmol/L Carbon Dioxide (22-30) mmol/L BUN (9-20) mg/dL Glucose (74-99) mg/dL POC Glucose (mg/dL) 158 H (75-99) mg/dL Urine Protein (Negative) Urine Glucose (UA) (Negative) Urine Ketones (Negative) Assessment and Plan (1) Intractable low back pain Narrative/Plan: On the patient is somewhat improved, since initiation of steroids, as well as fentanyl and morphine. He states that the breakthrough pain medication is not lasting as long as he would like. Dosing will be adjusted as appropriate. Depending on the need for breakthrough pain medications over the next 24 hours, fentanyl dose will also be adjusted as needed. I will increase her steroids to 6 mg every 6 hours for now. The patient has also received Zometa. Status: Acute (2) Metastatic cancer Narrative/Plan: Interventional radiology were consulted for biopsy. However, they recommended bronchoscopic approach. Pulmonary medicine has been consulted for bronchoscopy and biopsy. - Await tissue diagnosis. Clinically, lung primary with metastasis appears to be more likely. - Radiation oncology consult was placed and case discussed with them. The patient's [facility] This evaluated the lumbar spine, and reported pathologic compression fractures at multiple levels. Thoracic spine MRI was therefore ordered, given involvement in the T- spine noted on the computed tomography scan of the chest. As noted, steroid dose will be increased. The patient has no evidence of neurologic deficit. He will start radiation once tissue diagnosis confirmed. - Assuming a lung primary is confirmed, biomarker testing will also be ordered. Status: Acute
--- NOTE | 2016-11-29 19:36 | MR ---
EXAMINATION TYPE: MR thoracic spine wo/w con DATE OF EXAM: 11/29/2016 COMPARISON: NONE HISTORY: lesions, ca history CONTRAST: Standard multiplanar, multisequence MRI departmental protocol utilizing 20 mL intravenous MultiHance gadolinium contrast. FINDINGS: There is abnormal signal alteration at all levels suspicious for widespread bony metastases. Localiza tion images also suggestive likely is evidence of abnormal marrow alteration within the cervical spin e suggestive of metastasis. There is a moderate acute compression fracture which appears pathologic and T3. There is approximate 5% retropulsion. There are destructive changes C7, T2 involving the right pedicle and transverse process and a greater involvement of the posterior elements and right pedicle of T3 on the right with some extension into the spinal canal. This is seen anterolaterally on the right. There is very mild right lateral mass ef fect upon the right lateral margin of the spinal cord.. There is however expansion of the pedicle of T3 and soft tissue abnormal signal compatible with metastasis which encroaches upon the neural forami na on the right at both T2-T3 and T3-T4. There also appears to be evidence of a compression fracture of T9 with pathologic involvement. Pleural-based mass on the right noted with suspected right hilar adenopathy and small bilateral pleur al effusions with basilar consolidation. Calcified granuloma suspected. Hepatic involvement with subc entimeter hepatic nodules noted. Review of the recent CT scan demonstrates destructive process with compression fracture L3 is not inc luded on the thoracic spine however there does appear to be soft tissue density which encroaches and extends into the left anterior and lateral margin of the thecal sac. Recommend a follow-up MRI of the lumbar spine. Abnormal signal is also seen within multiple ribs suspicious for metastases which are only partially included on the exam. No abnormal signal or enhancement within the spinal cord. At T7-T8 there is a central disc tiny protrusion with mild distortion of the thecal sac but no displa cement of the spinal cord. Left paracentral disc bulging or tiny protrusion T8-T9 on the left. There is abnormal signal paracentrally left at T9-T10. This abuts the anterior margin of the spinal c ord. No significant enhancement and therefore this is felt to be more likely related to the disc junito iation. Abnormal signal involving the right humeral neck nonspecific but metastasis in the differential diagn osis. Mild superior endplate deformity C7 noted. IMPRESSION: 1. Diffuse osseous metastases with compression fracture which appears pathologic at the T3 level. Nevaeh roximately 5-10% retropulsion. There is destructive abnormal signal within the pedicle and transverse process on the right extending into the anterolateral margin of the spinal canal with very minimal m ass effect upon the right lateral margin of the spinal cord but no evidence of myelitis or spinal cor d enhancement. This does result in significant right-sided foraminal encroachment at T2-3 and T3-4 co rrelate for radiculopathy on the right at these levels. 2. Additional multiple areas of destructive change are seen throughout the thoracic vertebral column with compression fracture which appears pathologic at the approximate level of T9. 3. Additional bony metastasis as discussed above with suspicion of compression fracture L3 which like ly has a greater involvement the spinal canal anterolaterally in the left after review of a recent CT scan. Correlate with MRI lumbar spine. 4. Pulmonary mass and hepatic subcentimeter masses suspicious for metastases. 5. Central disc bulging T7-T8. And paracentral disc bulging T8-T9 on the left. #6 abnormal signal par acentrally to left at T9-T10. No definite enhancement seen in this is felt to represent most likely a small disc herniation correlate clinically. This does abut the anterior margin of the spinal cord on the left with no displacement.
[2016-11-29 20:24] LABS: Glucose,Whole Blood 176 mg/dL (75-99)
[2016-11-29] MEDS: DOCUSATE 100 MG CAP PO SCH (21:23)
[2016-11-29] MEDS: INSULIN GLARGINE 100 UNIT/ML 10 ML VIAL SQ SCH (21:24)
--- NOTE | 2016-11-29 22:54 | P.PN ---
Subjective Principal diagnosis: Acute lower back pain malignancy related 71-year-old male with a known history of hypertension, hyperlipidemia , diabetes type 2 and previous history of smoking and recently being worked up for malignancy presenting for evaluation of low back pain and left thigh pain. Patient was recently diagnosed with lytic lesions to his lumbar spine and scapula and metastatic lesions to the liver and lung. He is continued to have worsening pain since these diagnoses have been made. Patient initially went to orthopedic clinic about 14 weeks ago for back pain and underwent physical therapy and pain management. Patient recently had MRI about 2 weeks ago which showed multiple metastatic lesions and lighting bone lesions. Patient is supposed to follow with Dr. Brito tomorrow. The patient called his primary care physician Dr. Schneider who after discussion with his Hem/Onc specialist Dr. Velarde determined that he should be admitted for pain management, PET scan, and possible initiation of radiation treatment. He denies LE weakness, bladder/bowel incontinence, saddle anesthesia, fever, chills. 11/28/2016 Patient's lower back pain improved with pain medications. Oncology has been consulted. No fever no chills. Patient does have increased leukocytosis today. Denied any cough or sputum production. No dysuria. No complaints of chest pain. No worsening short of breath. Patient still having left hip area pain Chest x-ray showed 10 cm sized right bronchial mass. Imaging studies including MRI and CT scans from [place] will be obtained. 11/29/2016 Patient is still complaining of back pain. [facility] were obtained including MRI of the lumbar spine. Patient was referred to interventional radiology for liver biopsy but suggested lung biopsy is treated. Pulmonary was consulted for bronchoscopy and biopsy. Patient was started on dexamethasone. Radiation oncology has been consulted as well for radiation palliative. Leukocytosis improved today. No fever no chills. No chest pain. No worsening short of breath. Denied any nausea vomiting or abdominal pain Objective - Vital Signs Vital signs: Vital Signs Temp 98.4 F 11/29/16 20:00 Pulse 125 H 11/29/16 20:00 Resp 16 11/29/16 20:00 BP 136/77 11/29/16 20:00 Pulse Ox 93 L 11/29/16 20:00 Intake & Output 11/29/16 11/29/16 11/30/16 06:59 18:59 06:59 Intake Total 590 590 Output Total 550 300 Balance 40 290 Weight 91.172 kg Intake: Intake, IV Titration 350 Amount Sodium Chloride 0.9% 1, 350 000 ml @ 50 mls/hr IV . Q20H [facility] Rx#:[id number] Oral 590 240 Output: Urine 550 300 Other: Voiding Method Urinal Urinal # Voids 2 - Exam PHYSICAL EXAMINATION: Patient is lying in the bed comfortably, no acute distress, awake alert and oriented.. HEENT: Normocephalic. Neck is supple. Pupils reactive. Nostrils clear. Oral cavity is moist. Ears reveal no drainage. Neck reveals no JVD, carotid bruits, or thyromegaly. CHEST EXAMINATION: Trachea is central. Symmetrical expansion. Minimal crackles of the right base. No wheezing. CARDIAC: Normal S1, S2 with no gallops. No murmurs ABDOMEN: Soft. Bowel sounds normal. No organomegaly. No abdominal bruits. Extremities reveal no edema. No clubbing or cyanosis Neurologically awake, alert, oriented x3 with well-coordinated movements. Skin: no rash or skin lesions Musculoskeletal: no joint swelling or deformity. - Labs CBC & Chem 7: 11/29/16 07:25 11/29/16 07:25 Labs: Abnormal Lab Results - Last 24 Hours (Table) 11/28/16 11/29/16 11/29/16 Range/Units 12:40 07:25 07:25 WBC 11.3 H (3.8-10.6) k/uL Neutrophils # 9.1 H (1.3-7.7) k/uL Sodium 133 L (137-145) mmol/L Carbon Dioxide 17 L (22-30) mmol/L BUN 23 H (9-20) mg/dL Glucose 180 H (74-99) mg/dL POC Glucose (mg/dL) (75-99) mg/dL Urine Protein Trace H (Negative) Urine Glucose (UA) 2+ H (Negative) Urine Ketones 2+ H (Negative) 11/29/16 11/29/16 11/29/16 Range/Units 07:42 11:43 17:11 WBC (3.8-10.6) k/uL Neutrophils # (1.3-7.7) k/uL Sodium (137-145) mmol/L Carbon Dioxide (22-30) mmol/L BUN (9-20) mg/dL Glucose (74-99) mg/dL POC Glucose (mg/dL) 198 H 178 H 158 H (75-99) mg/dL Urine Protein (Negative) Urine Glucose (UA) (Negative) Urine Ketones (Negative) 11/29/16 Range/Units 20:22 WBC (3.8-10.6) k/uL Neutrophils # (1.3-7.7) k/uL Sodium (137-145) mmol/L Carbon Dioxide (22-30) mmol/L BUN (9-20) mg/dL Glucose (74-99) mg/dL POC Glucose (mg/dL) 176 H (75-99) mg/dL Urine Protein (Negative) Urine Glucose (UA) (Negative) Urine Ketones (Negative) Assessment and Plan Plan: #1 lower back pain and left-sided pain due to metastatic lesions #2 recently diagnosed malignancy with lung mass, liver lesions and bone lesions. Most likely lung being primary. #3 hypertension #4 hyperlipidemia #5 diabetes type 2 with hyperglycemia #6 hypovolemic hyponatremia #7 mild hyperkalemia #8 dehydration and volume depletion with elevated BUN #9 mild leukocytosis DVT prophylaxis Plan: Patient will be continued on Roxanol for pain management and supportive care. Patient was also started on dexamethasone. Oncology has been consulted and possible biopsy and radiation therapy. Pulmonary was consulted for lung biopsy. Prognosis is poor. We will follow closely and further recommendations based on the clinical course.
[2016-11-30] MEDS: DEXAMETHASONE SOD PHOSPHATE 4 MG/ML 1 ML VIAL IV SCH ×5 (01:06→23:09)
[2016-11-30] MEDS: MORPHINE SULFATE 10 MG/ML SYRINGE IV PRN ×3 (01:14→23:11)
[2016-11-30] MEDS: ENOXAPARIN 40 MG/0.4 ML SYRINGE SQ SCH (06:59)
[2016-11-30] MEDS: INSULIN LISPRO (humaLOG) 300 UNIT/3 ML VIAL SQ SCH ×4 (08:23→20:47)
[2016-11-30] MEDS: LISINOPRIL 5 MG TAB PO SCH (08:23)
[2016-11-30] MEDS: CARVEDILOL 3.125 MG TAB PO SCH ×2 (08:23→18:03)
[2016-11-30] MEDS: DOCUSATE 100 MG CAP PO SCH ×2 (08:24→20:47)
[2016-11-30] MEDS: SODIUM CHLORIDE 0.9% 1,000 ML IV SCH (08:31)
[2016-11-30] MEDS ORDERED: RX INFO: IV CONTRAST WAS GIVEN 1 EACH MISC MISCELLANE PRN (09:06)
--- NOTE | 2016-11-30 09:28 | P.PN ---
Subjective Principal diagnosis: Acute lower back pain malignancy related 71-year-old male with a known history of hypertension, hyperlipidemia , diabetes type 2 and previous history of smoking and recently being worked up for malignancy presenting for evaluation of low back pain and left thigh pain. Patient was recently diagnosed with lytic lesions to his lumbar spine and scapula and metastatic lesions to the liver and lung. He is continued to have worsening pain since these diagnoses have been made. Patient initially went to orthopedic clinic about 14 weeks ago for back pain and underwent physical therapy and pain management. Patient recently had MRI about 2 weeks ago which showed multiple metastatic lesions and lighting bone lesions. Patient is supposed to follow with Dr. Brito tomorrow. The patient called his primary care physician Dr. Schneider who after discussion with his Hem/Onc specialist Dr. Velarde determined that he should be admitted for pain management, PET scan, and possible initiation of radiation treatment. He denies LE weakness, bladder/bowel incontinence, saddle anesthesia, fever, chills. 11/28/2016 Patient's lower back pain improved with pain medications. Oncology has been consulted. No fever no chills. Patient does have increased leukocytosis today. Denied any cough or sputum production. No dysuria. No complaints of chest pain. No worsening short of breath. Patient still having left hip area pain Chest x-ray showed 10 cm sized right bronchial mass. Imaging studies including MRI and CT scans from [place] will be obtained. 11/29/2016 Patient is still complaining of back pain. Reports [facility] were obtained including MRI of the lumbar spine. Patient was referred to interventional radiology for liver biopsy but suggested lung biopsy is treated. Pulmonary was consulted for bronchoscopy and biopsy. Patient was started on dexamethasone. Radiation oncology has been consulted as well for radiation palliative. Leukocytosis improved today. No fever no chills. No chest pain. No worsening short of breath. Denied any nausea vomiting or abdominal pain Patient seen and evaluated examined on 11/30/2016 he is slightly confused but breathing comfortably does complain of severe back pain he is currently nothing by mouth for possible bronchoscopy and biopsy later on today, I have explained the procedure to him review the computed tomography scan with further recommendations pending Objective - Vital Signs Vital signs: Vital Signs Temp 98.5 F 11/30/16 07:00 Pulse 109 H 11/30/16 07:00 Resp 18 11/30/16 07:00 BP 105/57 11/30/16 07:00 Pulse Ox 91 L 11/30/16 07:00 Intake & Output 11/29/16 11/30/16 11/30/16 18:59 06:59 18:59 Intake Total 590 1650 Output Total 300 950 Balance 290 700 Weight 91.172 kg Intake: Intake, IV Titration 350 1000 Amount Sodium Chloride 0.9% 1, 350 1000 000 ml @ 50 mls/hr IV . Q20H [facility] Rx#:[id number] Oral 240 650 Output: Urine 300 950 Other: Voiding Method Urinal Incontinent # Voids 2 2 - Exam PHYSICAL EXAMINATION: Patient is lying in the bed comfortably, no acute distress, awake alert and oriented.. HEENT: Normocephalic. Neck is supple. Pupils reactive. Nostrils clear. Oral cavity is moist. Ears reveal no drainage. Neck reveals no JVD, carotid bruits, or thyromegaly. CHEST EXAMINATION: Trachea is central. Symmetrical expansion. Minimal crackles of the right base. No wheezing. CARDIAC: Normal S1, S2 with no gallops. No murmurs ABDOMEN: Soft. Bowel sounds normal. No organomegaly. No abdominal bruits. Extremities reveal no edema. No clubbing or cyanosis Neurologically awake, alert, oriented x3 with well-coordinated movements. Skin: no rash or skin lesions Musculoskeletal: no joint swelling or deformity. - Labs CBC & Chem 7: 11/29/16 07:25 11/29/16 07:25 Labs: Abnormal Lab Results - Last 24 Hours (Table) 11/28/16 11/29/16 11/29/16 Range/Units 12:40 07:25 11:43 WBC 11.3 H (3.8-10.6) k/uL Neutrophils # 9.1 H (1.3-7.7) k/uL POC Glucose (mg/dL) 178 H (75-99) mg/dL Urine Protein Trace H (Negative) Urine Glucose (UA) 2+ H (Negative) Urine Ketones 2+ H (Negative) 11/29/16 11/29/16 Range/Units 17:11 20:22 WBC (3.8-10.6) k/uL Neutrophils # (1.3-7.7) k/uL POC Glucose (mg/dL) 158 H 176 H (75-99) mg/dL Urine Protein (Negative) Urine Glucose (UA) (Negative) Urine Ketones (Negative) - Imaging and Cardiology Chest x-ray: report reviewed CT scan - chest: report reviewed (Chest x-ray revealed presence of right-sided lung mass somewhat midlung inferiorly and laterally, thoracic MRI revealed osseous metastatic changes 83 T3 level, and additional at F3 and L3 level with compression fracture lung mass is also noted, patient on a CAT scan performed on 823 revealed extensive emphysema provably right upper lobe mass with lobular contours about 10 cm x 7 cm in size large right hilar mass within neuropathy more than 5 cm in size along with subcarinal lymph nodes are seen) Assessment and Plan Plan: Likely stage IV lung cancer, with metastases to spine Large right hilar mass with that referral large about 7 cm mass which is pleural base on the right side as well as right lower lobe mass, discussed with the patient will proceed with bronchoscopy later on today this afternoon procedure explained to the patient care plan discussed with the staff Time with Patient: Greater than 30
[2016-11-30 10:56] LABS: Blood Urea Nitrogen 28 mg/dL (9-20); Non-African American GFR(MDRD) >60 (>60 ml/min/1.73 sqM)
[2016-11-30 11:09] LABS: Glucose,Whole Blood 243 mg/dL (75-99)
--- NOTE | 2016-11-30 13:07 | P.PN ---
Subjective Principal diagnosis: Intractable pain from malignancy Pt seen today briefly in follow up, his is at bedside, he currently denies pain, SOB, nausea or need to go to the bathroom Objective - Vital Signs Vital signs: Vital Signs Temp 98.5 F 11/30/16 07:00 Pulse 109 H 11/30/16 07:00 Resp 18 11/30/16 08:00 BP 105/57 11/30/16 07:00 Pulse Ox 91 L 11/30/16 07:00 Intake & Output 11/29/16 11/30/16 11/30/16 18:59 06:59 18:59 Intake Total 590 1650 Output Total 300 950 Balance 290 700 Weight 91.172 kg Intake: Intake, IV Titration 350 1000 Amount Sodium Chloride 0.9% 1, 350 1000 000 ml @ 50 mls/hr IV . Q20H [facility] Rx#:[id number] Oral 240 650 Output: Urine 300 950 Other: Voiding Method Urinal Incontinent # Voids 2 2 - Exam WDWN, male laying in bed, NAD, alert and oriented x 4 - Labs CBC & Chem 7: 11/29/16 07:25 11/30/16 10:07 Labs: Abnormal Lab Results - Last 24 Hours (Table) 11/28/16 11/29/16 11/29/16 Range/Units 12:40 17:11 20:22 BUN (9-20) mg/dL POC Glucose (mg/dL) 158 H 176 H (75-99) mg/dL Urine Protein Trace H (Negative) Urine Glucose (UA) 2+ H (Negative) Urine Ketones 2+ H (Negative) 11/30/16 11/30/16 Range/Units 10:07 11:04 BUN 28 H (9-20) mg/dL POC Glucose (mg/dL) 243 H (75-99) mg/dL Urine Protein (Negative) Urine Glucose (UA) (Negative) Urine Ketones (Negative) Assessment and Plan (1) Intractable low back pain Narrative/Plan: Continue to titrate pain meds for pain control. Meds to prevent narcotic induced constipation Status: Acute (2) Metastatic cancer Narrative/Plan: MRI of spine results show lesions at nearly every level of the spine, this was discussed with pt and . Awaiting biopsy to confirm diagnosis but pt has widespread metastatic malignancy , suspect lung origin, Dr. Yu doing bronch today. Will discuss treatment options after biopsy results. Status: Acute
[2016-11-30] MEDS ORDERED: PROPOFOL 10 MG/ML 20 ML VIAL IV ONE (13:50)
[2016-11-30] MEDS ORDERED: LIDOCAINE 1% INJ 10MG/ML (20 ML MDV) ONE (13:50)
[2016-11-30] MEDS ORDERED: MIDAZOLAM 2 MG/2 ML VIAL ONE (13:50)
[2016-11-30] MEDS ORDERED: fentaNYL (PF) 50 MCG/ML 2 ML AMP ONE (13:50)
[2016-11-30] MEDS ORDERED: IV FLUID CONTINUATION 1,000 ML IV ONE (13:52)
--- NOTE | 2016-11-30 14:07 | P.PN ---
Subjective Acute lower back pain malignancy related 71-year-old male with a known history of hypertension, hyperlipidemia , diabetes type 2 and previous history of smoking and recently being worked up for malignancy presenting for evaluation of low back pain and left thigh pain. Patient was recently diagnosed with lytic lesions to his lumbar spine and scapula and metastatic lesions to the liver and lung. He is continued to have worsening pain since these diagnoses have been made. Patient initially went to orthopedic clinic about 14 weeks ago for back pain and underwent physical therapy and pain management. Patient recently had MRI about 2 weeks ago which showed multiple metastatic lesions and lighting bone lesions. Patient is supposed to follow with Dr. Brito tomorrow. The patient called his primary care physician Dr. Schneider who after discussion with his Hem/Onc specialist Dr. Velarde determined that he should be admitted for pain management, PET scan, and possible initiation of radiation treatment. He denies LE weakness, bladder/bowel incontinence, saddle anesthesia, fever, chills. 11/28/2016 Patient's lower back pain improved with pain medications. Oncology has been consulted. No fever no chills. Patient does have increased leukocytosis today. Denied any cough or sputum production. No dysuria. No complaints of chest pain. No worsening short of breath. Patient still having left hip area pain Chest x-ray showed 10 cm sized right bronchial mass. Imaging studies including MRI and CT scans from [place] will be obtained. 11/29/2016 Patient is still complaining of back pain. [facility] were obtained including MRI of the lumbar spine. Patient was referred to interventional radiology for liver biopsy but suggested lung biopsy is treated. Pulmonary was consulted for bronchoscopy and biopsy. Patient was started on dexamethasone. Radiation oncology has been consulted as well for radiation palliative. Leukocytosis improved today. No fever no chills. No chest pain. No worsening short of breath. Denied any nausea vomiting or abdominal pain 11/30/16 pain is better controlled doing slightly better no new overnight events scheduled for bronchoscopy guided biopsy PHYSICAL EXAMINATION: Patient is lying in the bed comfortably, no acute distress, awake alert and oriented.. HEENT: Normocephalic. Neck is supple. Pupils reactive. Nostrils clear. Oral cavity is moist. Ears reveal no drainage. Neck reveals no JVD, carotid bruits, or thyromegaly. CHEST EXAMINATION: Trachea is central. Symmetrical expansion. Minimal crackles of the right base. No wheezing. CARDIAC: Normal S1, S2 with no gallops. No murmurs ABDOMEN: Soft. Bowel sounds normal. No organomegaly. No abdominal bruits. Extremities reveal no edema. No clubbing or cyanosis Neurologically awake, alert, oriented x3 with well-coordinated movements. Skin: no rash or skin lesions Musculoskeletal: no joint swelling or deformity. Assessment and Plan Plan: #1 lower back pain and left-sided pain due to metastatic lesions #2 recently diagnosed malignancy with lung mass, liver lesions and bone lesions. Most likely lung being primary. #3 hypertension #4 hyperlipidemia #5 diabetes type 2 with hyperglycemia #6 hypovolemic hyponatremia #7 mild hyperkalemia #8 dehydration and volume depletion with elevated BUN #9 mild leukocytosis DVT prophylaxis Plan await biopsy pain control hold lisinopril K was elevated repeat labs leila Objective - Vital Signs Vital signs: Vital Signs Temp 98.5 F 11/30/16 07:00 Pulse 109 H 11/30/16 07:00 Resp 18 11/30/16 08:00 BP 105/57 11/30/16 07:00 Pulse Ox 91 L 11/30/16 07:00 Intake & Output 11/29/16 11/30/16 11/30/16 18:59 06:59 18:59 Intake Total 590 1650 Output Total 300 950 Balance 290 700 Weight 91.172 kg Intake: Intake, IV Titration 350 1000 Amount Sodium Chloride 0.9% 1, 350 1000 000 ml @ 50 mls/hr IV . Q20H [facility] Rx#:[id number] Oral 240 650 Output: Urine 300 950 Other: Voiding Method Urinal Incontinent # Voids 2 2 - Labs CBC & Chem 7: 11/29/16 07:25 11/30/16 10:07 Labs: Abnormal Lab Results - Last 24 Hours (Table) 11/28/16 11/29/16 11/29/16 Range/Units 12:40 17:11 20:22 BUN (9-20) mg/dL POC Glucose (mg/dL) 158 H 176 H (75-99) mg/dL Urine Ketones 2+ H (Negative) 11/30/16 11/30/16 Range/Units 10:07 11:04 BUN 28 H (9-20) mg/dL POC Glucose (mg/dL) 243 H (75-99) mg/dL Urine Ketones (Negative)
[2016-11-30] MEDS ORDERED: LIDOCAINE 2% (PF) 20 MG/ML 10ML INHALATION ONE (14:20)
[2016-11-30] MEDS ORDERED: LIDOCAINE 1% INJ 10MG/ML (20 ML MDV) INTRATRACH ONE (14:21)
--- NOTE | 2016-11-30 14:38 | FL ---
EXAMINATION TYPE: FL bronchoscopy DATE OF EXAM: 11/30/2016 CLINICAL HISTORY: Bronchoscopy TECHNIQUE: Fluoroscopy. BRONCH ASSIST. BIOPSIES RT UPPER LOBE. DR. BAIRES. 7 SEC FL TIME. 1 PIC SCANNED
--- NOTE | 2016-11-30 15:02 | XR ---
EXAMINATION TYPE: XR chest 1V portable DATE OF EXAM: 11/30/2016 HISTORY: Status post bronchoscopy COMPARISON: 11/28/2016 TECHNIQUE: Single view of the chest is submitted. FINDINGS: No evidence for pneumothorax. Pleural-based mass density right lower lobe is unchanged. The heart is stable. Hilar and mediastinal structures are within normal limits. Degenerative changes are seen of the dorsal spine. IMPRESSION: No evidence for pneumothorax. Pleural-based mass density right lower lobe is unchanged.
--- NOTE | 2016-11-30 15:33 | P.PCN ---
Date of Procedure: 11/30/16 Preoperative Diagnosis: Lung mass likely lung cancer Postoperative Diagnosis: Procedure(s) Performed: #1 Bronchoscopy, #2 bronchioloalveolar lavage, #3 bronchial biopsy, #4 transbronchial lung biopsy under fluoroscopic guidance Implants: Anesthesia: other Surgeon: Dereck Yu Pathology: other (Specimen sent) Condition: stable Disposition: floor Indications for Procedure: As above Operative Findings: As above and below Description of Procedure: Informed consent obtained from the patient and family procedures side effect complication has been explained to them at length, conscious sedation was performed from the anesthesia the tip of the scope was passed through the right nares vocal cords were inspected and were normal structure and function tip of the score spaz B on the vocal cords left side was inspected involving left upper lobe left lower lobe and lingular lobe no endobronchial mass lesion wasn' t defied followed by inspection of the right upper lobe right middle lobe right lower lobe the right middle lobe or right lower lobe intact no endobronchial mass lesion was seen however in the right upper lobe subsegment noted to have partial closure due to endobronchial mass which was very friable vascular easy to bleed appendectomy with Lidoderm was infiltrated bronchial biopsy was performed followed by washing and bronchial were lavaged, fluoroscope was utilized to perform the transbronchial lung biopsy multiple biopsies obtained patient tolerated procedure well no complication noted.
--- NOTE | 2016-11-30 17:10 | CT ---
EXAMINATION TYPE: CT brain w con DATE OF EXAM: 11/30/2016 COMPARISON: NONE HISTORY: Metastatic malignancy. Patient is known to have cancer to lung and liver. CT DLP: 1121.00 mGycm Automated exposure control for dose reduction was used. CONTRAST: CT scan of the head is performed with IV Contrast, patient injected with 100 mL of Omnipaque 300. FINDINGS: Remote insult left frontal lobe is noted. There is mild prominence of the ventricles basal cisterns a nd sulci overlying the cerebral convexities. No evidence for enhancing lesion or pathologic enhanceme nt. IMPRESSION: Enhancing lesion identified.
[2016-11-30] MEDS: INSULIN GLARGINE 100 UNIT/ML 10 ML VIAL SQ SCH (20:46)
[2016-11-30 20:47] LABS: Glucose,Whole Blood 273 mg/dL (75-99)
[2016-12-01] MEDS: DEXAMETHASONE SOD PHOSPHATE 4 MG/ML 1 ML VIAL IV SCH ×3 (05:31→18:11)
[2016-12-01] MEDS: SODIUM CHLORIDE 0.9% 1,000 ML IV SCH ×2 (07:21→07:45)
[2016-12-01] MEDS: MORPHINE SULFATE 10 MG/ML SYRINGE IV PRN ×2 (07:43→10:29)
[2016-12-01] MEDS: CARVEDILOL 3.125 MG TAB PO SCH ×2 (07:45→16:52)
[2016-12-01] MEDS: ENOXAPARIN 40 MG/0.4 ML SYRINGE SQ SCH (07:45)
[2016-12-01 07:57] LABS: Glucose,Whole Blood 237 mg/dL (75-99)
[2016-12-01 08:00] LABS: Basophils % (A) 0 %; CH 28.9; CHCM 32.3; Eosinophils % (A) 0 %; HCT 41.7 % (39.0-53.0); HDW 2.51; HGB 13.2 gm/dL (13.0-17.5); Luc # (Auto) 0.21; Luc % (Auto) 2; Lymphocytes % (A) 8 %; MCH 28.4 pg (25.0-35.0); MCHC 31.6 g/dL (31.0-37.0); Mean Platelet Volume 8.1; Monocytes # (A) 0.8 k/uL (0-1.0); Monocytes % (A) 7 %; Neutrophils # (A) 10.2 k/uL (1.3-7.7); Neutrophils % (A) 83 %; RBC 4.63 m/uL (4.30-5.90); RDW 14.2 % (11.5-15.5); WBC 12.3 k/uL (3.8-10.6); WBC (Perox) 11.66
[2016-12-01] MEDS: CYCLOBENZAPRINE 10 MG TAB PO PRN ×2 (08:18→20:53)
[2016-12-01] MEDS: INSULIN LISPRO (humaLOG) 300 UNIT/3 ML VIAL SQ SCH ×4 (08:19→20:53)
[2016-12-01 08:20] LABS: ALT 201 U/L (21-72); AST 164 U/L (17-59); Alkaline Phosphatase 184 U/L (38-126); Anion Gap 9 mmol/L; Blood Urea Nitrogen 26 mg/dL (9-20); Calcium 7.8 mg/dL (8.4-10.2); Carbon Dioxide 19 mmol/L (22-30); Chloride 104 mmol/L (98-107); Glucose 258 mg/dL (74-99); Non-African American GFR(MDRD) >60 (>60 ml/min/1.73 sqM); Potassium 4.3 mmol/L (3.5-5.1); Sodium 132 mmol/L (137-145); Total Bilirubin 0.8 mg/dL (0.2-1.3); Total Protein 5.8 g/dL (6.3-8.2)
--- NOTE | 2016-12-01 09:20 | P.PN ---
Subjective Principal diagnosis: Acute lower back pain malignancy related 71-year-old male with a known history of hypertension, hyperlipidemia , diabetes type 2 and previous history of smoking and recently being worked up for malignancy presenting for evaluation of low back pain and left thigh pain. Patient was recently diagnosed with lytic lesions to his lumbar spine and scapula and metastatic lesions to the liver and lung. He is continued to have worsening pain since these diagnoses have been made. Patient initially went to orthopedic clinic about 14 weeks ago for back pain and underwent physical therapy and pain management. Patient recently had MRI about 2 weeks ago which showed multiple metastatic lesions and lighting bone lesions. Patient is supposed to follow with Dr. Brito tomorrow. The patient called his primary care physician Dr. Schneider who after discussion with his Hem/Onc specialist Dr. Velarde determined that he should be admitted for pain management, PET scan, and possible initiation of radiation treatment. He denies LE weakness, bladder/bowel incontinence, saddle anesthesia, fever, chills. 11/28/2016 Patient's lower back pain improved with pain medications. Oncology has been consulted. No fever no chills. Patient does have increased leukocytosis today. Denied any cough or sputum production. No dysuria. No complaints of chest pain. No worsening short of breath. Patient still having left hip area pain Chest x-ray showed 10 cm sized right bronchial mass. Imaging studies including MRI and CT scans from [place] will be obtained. 11/29/2016 Patient is still complaining of back pain. [facility] were obtained including MRI of the lumbar spine. Patient was referred to interventional radiology for liver biopsy but suggested lung biopsy is treated. Pulmonary was consulted for bronchoscopy and biopsy. Patient was started on dexamethasone. Radiation oncology has been consulted as well for radiation palliative. Leukocytosis improved today. No fever no chills. No chest pain. No worsening short of breath. Denied any nausea vomiting or abdominal pain Patient seen and evaluated examined on 11/30/2016 he is slightly confused but breathing comfortably does complain of severe back pain he is currently nothing by mouth for possible bronchoscopy and biopsy later on today, I have explained the procedure to him review the computed tomography scan with further recommendations pending Patient seen and evaluated examined during the rounds he is awake but remains nonverbal and noncommunicative speech and swallow are following this patient he is on nectar thick diet, still having issues and problems with leukocytosis ongoing sepsis and tachycardia beta blockers are being adjusted, patient remains on the DVT and peptic ulcer disease prophylaxis, and the antibiotic Cipro, patient is gently being rehydrated as well given presence of leukocytosis will do the sepsis workup repeat urine and blood and repeat chest x -ray Objective - Vital Signs Vital signs: Vital Signs Temp 97.3 F L 12/01/16 07:00 Pulse 105 H 12/01/16 07:55 Resp 20 12/01/16 07:00 BP 122/71 12/01/16 07:00 Pulse Ox 95 12/01/16 07:00 Intake & Output 11/30/16 12/01/16 12/01/16 18:59 06:59 18:59 Intake Total 550 800 Balance 550 800 Intake: IV 150 Intake, IV Titration 400 800 Amount Sodium Chloride 0.9% 1, 400 800 000 ml @ 50 mls/hr IV . Q20H [facility] Rx#:[id number] Other: Voiding Method Incontinent Toilet Urinal # Voids 2 - Exam PHYSICAL EXAMINATION: Patient is lying in the bed comfortably, no acute distress, awake alert and oriented.. HEENT: Normocephalic. Neck is supple. Pupils reactive. Nostrils clear. Oral cavity is moist. Ears reveal no drainage. Neck reveals no JVD, carotid bruits, or thyromegaly. CHEST EXAMINATION: Trachea is central. Symmetrical expansion. Minimal crackles of the right base. No wheezing. CARDIAC: Normal S1, S2 with no gallops. No murmurs ABDOMEN: Soft. Bowel sounds normal. No organomegaly. No abdominal bruits. Extremities reveal no edema. No clubbing or cyanosis Neurologically awake, alert, oriented x3 with well-coordinated movements. Skin: no rash or skin lesions Musculoskeletal: no joint swelling or deformity. - Labs CBC & Chem 7: 12/01/16 07:44 12/01/16 07:44 Labs: Abnormal Lab Results - Last 24 Hours (Table) 11/30/16 11/30/16 11/30/16 Range/Units 10:07 11:04 20:26 WBC (3.8-10.6) k/uL Neutrophils # (1.3-7.7) k/uL Sodium (137-145) mmol/L Carbon Dioxide (22-30) mmol/L BUN 28 H (9-20) mg/dL Glucose (74-99) mg/dL POC Glucose (mg/dL) 243 H 273 H (75-99) mg/dL Calcium (8.4-10.2) mg/dL AST (17-59) U/L ALT (21-72) U/L Alkaline Phosphatase (38-126) U/L Total Protein (6.3-8.2) g/dL Albumin (3.5-5.0) g/dL 12/01/16 12/01/16 12/01/16 Range/Units 07:44 07:44 07:51 WBC 12.3 H (3.8-10.6) k/uL Neutrophils # 10.2 H (1.3-7.7) k/uL Sodium 132 L (137-145) mmol/L Carbon Dioxide 19 L (22-30) mmol/L BUN 26 H (9-20) mg/dL Glucose 258 H (74-99) mg/dL POC Glucose (mg/dL) 237 H (75-99) mg/dL Calcium 7.8 L (8.4-10.2) mg/dL AST 164 H (17-59) U/L ALT 201 H (21-72) U/L Alkaline Phosphatase 184 H (38-126) U/L Total Protein 5.8 L (6.3-8.2) g/dL Albumin 3.1 L (3.5-5.0) g/dL Microbiology - Last 24 Hours (Table) 11/30/16 14:33 Gram Stain - Preliminary Bronchial Washings - Right Bronchial Washings Culture - Preliminary 11/30/16 14:33 Fungal Culture - Preliminary Bronchial Washings - Right 11/30/16 14:33 Acid Fast Bacilli Culture - Preliminary Bronchial Washings - Right Assessment and Plan Plan: Urinary tract infection, culture positive for gram negatives bacilli and E. coli , which appears to be ESBL, IVS adjust antibiotics, leukocytosis and will repeat urine and blood and obtain a chest x-ray Acute hypoxic respiratory failure, with recurrent aspiration Hyperkalemia, improved Acute renal failure Sepsis with fever, gram-negative Hypernatremia likely related to decreased oral intake Probable rectal mass, currently being worked up Diarrhea History of CVA Plan As dictated above consider alternate medius mode of nutritional support Patient is currently being worked up for discharge planning to extended care facility. Discharge will be held until infectious disease can recommend antibiotics for possible ESBL in the urine. Currently patient is being monitored on antibiotics as per ID recommendations, we'll follow and observe Medications have been reviewed and will be continued as ordered. Patient's prognosis is guarded. Patient known to be resistive to care and medical treatment. Continue to monitor electrolytes. Patient will undergo colonoscopy once cleared, in the outpatient setting. Continue with pulmonary hygiene, coughing and deep breathing exercises, and supportive care. Supplemental oxygen to maintain oxygen saturations of 92% or better. Continue nebulizer treatments in the form of DuoNeb and budesonide. . GI and DVT prophylaxis. Appreciate consults recommendations. We will continue to monitor labs/results and adjust treatment as necessary. Further recommendations pending. Time with Patient: Greater than 30
[2016-12-01] MEDS: DOCUSATE 100 MG CAP PO SCH ×2 (10:37→20:53)
[2016-12-01 11:47] LABS: Glucose,Whole Blood 219 mg/dL (75-99)
--- NOTE | 2016-12-01 13:57 | P.PN ---
Subjective Principal diagnosis: Acute lower back pain malignancy relate, patient seen and evaluated examined during the rounds is still complaining of back pain he tolerated the bronchoscopy very well Patient seen and evaluated examined during follow-up round he is more awake and alert he is breathing comfortably he is tolerated the bronchoscopy fairly well however he does get short of breath and activity and exertion continue to complain of severe pain in the back Objective - Vital Signs Vital signs: Vital Signs Temp 97.3 F L 12/01/16 07:00 Pulse 105 H 12/01/16 07:55 Resp 20 12/01/16 07:00 BP 122/71 12/01/16 07:00 Pulse Ox 95 12/01/16 07:00 Intake & Output 11/30/16 12/01/16 12/01/16 18:59 06:59 18:59 Intake Total 550 800 400 Balance 550 800 400 Intake: IV 150 Intake, IV Titration 400 800 400 Amount Sodium Chloride 0.9% 1, 400 800 400 000 ml @ 50 mls/hr IV . Q20H [facility] Rx#:[id number] Other: Voiding Method Incontinent Toilet Urinal # Voids 2 - Exam PHYSICAL EXAMINATION: Patient is lying in the bed comfortably, no acute distress, awake alert and oriented.. HEENT: Normocephalic. Neck is supple. Pupils reactive. Nostrils clear. Oral cavity is moist. Ears reveal no drainage. Neck reveals no JVD, carotid bruits, or thyromegaly. CHEST EXAMINATION: Trachea is central. Symmetrical expansion. Minimal crackles of the right base. No wheezing. CARDIAC: Normal S1, S2 with no gallops. No murmurs ABDOMEN: Soft. Bowel sounds normal. No organomegaly. No abdominal bruits. Extremities reveal no edema. No clubbing or cyanosis Neurologically awake, alert, oriented x3 with well-coordinated movements. Skin: no rash or skin lesions Musculoskeletal: no joint swelling or deformity. - Labs CBC & Chem 7: 12/01/16 07:44 12/01/16 07:44 Labs: Abnormal Lab Results - Last 24 Hours (Table) 11/30/16 12/01/16 12/01/16 Range/Units 20:26 07:44 07:44 WBC 12.3 H (3.8-10.6) k/uL Neutrophils # 10.2 H (1.3-7.7) k/uL Sodium 132 L (137-145) mmol/L Carbon Dioxide 19 L (22-30) mmol/L BUN 26 H (9-20) mg/dL Glucose 258 H (74-99) mg/dL POC Glucose (mg/dL) 273 H (75-99) mg/dL Calcium 7.8 L (8.4-10.2) mg/dL AST 164 H (17-59) U/L ALT 201 H (21-72) U/L Alkaline Phosphatase 184 H (38-126) U/L Total Protein 5.8 L (6.3-8.2) g/dL Albumin 3.1 L (3.5-5.0) g/dL 12/01/16 12/01/16 Range/Units 07:51 11:41 WBC (3.8-10.6) k/uL Neutrophils # (1.3-7.7) k/uL Sodium (137-145) mmol/L Carbon Dioxide (22-30) mmol/L BUN (9-20) mg/dL Glucose (74-99) mg/dL POC Glucose (mg/dL) 237 H 219 H (75-99) mg/dL Calcium (8.4-10.2) mg/dL AST (17-59) U/L ALT (21-72) U/L Alkaline Phosphatase (38-126) U/L Total Protein (6.3-8.2) g/dL Albumin (3.5-5.0) g/dL Microbiology - Last 24 Hours (Table) 11/30/16 14:33 Gram Stain - Preliminary Bronchial Washings - Right Bronchial Washings Culture - Preliminary 11/30/16 14:33 Fungal Culture - Preliminary Bronchial Washings - Right 11/30/16 14:33 Acid Fast Bacilli Culture - Preliminary Bronchial Washings - Right Assessment and Plan Plan: . Right-sided lung masses along with hilar lymphadenopathy Lesions in the spine likely metastatic lung cancer Severe degree of back pain related to above Plan is to monitor clinical course closely pain management awaiting biopsy results and report likely it will turn around to be a new plastic processes prognosis is guarded and poor Time with Patient: Greater than 30
[2016-12-01] MEDS: MORPHINE ORAL SOLN 20 MG/1 ML ORAL SYRINGE PO PRN ×2 (16:48→20:52)
[2016-12-01 18:02] LABS: Glucose,Whole Blood 202 mg/dL (75-99)
--- NOTE | 2016-12-01 19:38 | P.PN ---
Subjective The patient's pain control is significantly improved, at least at rest. He is able to get out of bed and ambulate to the bathroom that he feels weak. There is exacerbation of pain with weightbearing, which is still tolerable. Objective - Vital Signs Vital signs: Vital Signs Temp 97.4 F L 12/01/16 15:00 Pulse 91 12/01/16 15:00 Resp 20 12/01/16 15:00 BP 130/72 12/01/16 15:00 Pulse Ox 97 12/01/16 15:00 Intake & Output 12/01/16 12/01/16 12/02/16 06:59 18:59 06:59 Intake Total 800 400 Balance 800 400 Intake: Intake, IV Titration 800 400 Amount Sodium Chloride 0.9% 1, 800 400 000 ml @ 50 mls/hr IV . Q20H [facility] Rx#:[id number] Other: Voiding Method Toilet Urinal # Voids 2 - Constitutional General appearance: Present: no acute distress - EENT Eyes: Present: EOMI, PERRLA ENT: Present: hearing grossly normal, normal oropharynx - Respiratory Respiratory: bilateral: CTA - Cardiovascular Rhythm: regular Heart sounds: normal: S1, S2 - Gastrointestinal General gastrointestinal: Present: normal bowel sounds, soft - Integumentary Integumentary: Present: normal - Neurologic Neurologic: Present: CNII-XII intact - Musculoskeletal Musculoskeletal: Present: generalized weakness, strength equal bilaterally - Psychiatric Psychiatric: Present: A&O x's 3, appropriate affect - Labs CBC & Chem 7: 12/01/16 07:44 12/01/16 07:44 Labs: Abnormal Lab Results - Last 24 Hours (Table) 11/30/16 12/01/16 12/01/16 Range/Units 20:26 07:44 07:44 WBC 12.3 H (3.8-10.6) k/uL Neutrophils # 10.2 H (1.3-7.7) k/uL Sodium 132 L (137-145) mmol/L Carbon Dioxide 19 L (22-30) mmol/L BUN 26 H (9-20) mg/dL Glucose 258 H (74-99) mg/dL POC Glucose (mg/dL) 273 H (75-99) mg/dL Calcium 7.8 L (8.4-10.2) mg/dL AST 164 H (17-59) U/L ALT 201 H (21-72) U/L Alkaline Phosphatase 184 H (38-126) U/L Total Protein 5.8 L (6.3-8.2) g/dL Albumin 3.1 L (3.5-5.0) g/dL 12/01/16 12/01/16 12/01/16 Range/Units 07:51 11:41 17:49 WBC (3.8-10.6) k/uL Neutrophils # (1.3-7.7) k/uL Sodium (137-145) mmol/L Carbon Dioxide (22-30) mmol/L BUN (9-20) mg/dL Glucose (74-99) mg/dL POC Glucose (mg/dL) 237 H 219 H 202 H (75-99) mg/dL Calcium (8.4-10.2) mg/dL AST (17-59) U/L ALT (21-72) U/L Alkaline Phosphatase (38-126) U/L Total Protein (6.3-8.2) g/dL Albumin (3.5-5.0) g/dL Microbiology - Last 24 Hours (Table) 11/30/16 14:33 Gram Stain - Preliminary Bronchial Washings - Right Bronchial Washings Culture - Preliminary 11/30/16 14:33 Fungal Culture - Preliminary Bronchial Washings - Right 11/30/16 14:33 Acid Fast Bacilli Culture - Preliminary Bronchial Washings - Right Assessment and Plan (1) Intractable low back pain Narrative/Plan: This is cancer related. Overall pain control is better, with initiation of steroids, and fentanyl. He is being changed to Roxanol for breakthrough pain. She will be discharged home, on oral steroids with a slow taper, as well as continued fentanyl and Roxanol. Ortho - spine will be consulted to assess for a back brace, and possible kyphoplasty in the future. Status: Acute (2) Metastatic cancer Narrative/Plan: I had an extensive discussion, with the patient, his and son, regarding the findings so far and their implications. They were again advised, that imaging studies are highly suggestive of metastatic malignancy. A lung primary would be the major differential. However tissue diagnosis is needed for confirmation, as well as to determine the type of cancer. The patient is status post bronchoscopy, biopsies pending. If a lung primary is confirmed, as suspected, the patient would have metastatic or stage IV cancer. This is generally not curable, and objective of treatment as prolonged resolution of life and palliation of symptoms. The role of radiation in this case is purely palliative. The mainstay of treatment would be systemic therapy, with the exact type been determined based on the type of cancer. In general, systemic therapy would initially start after completion of radiation. Prognosis, with and without treatment for metastatic lung cancer was also discussed Status: Acute
[2016-12-01 20:38] LABS: Glucose,Whole Blood 223 mg/dL (75-99)
[2016-12-01] MEDS ORDERED: INSULIN GLARGINE 100 UNIT/ML 10 ML VIAL SQ SCH (21:00)
[2016-12-02] MEDS: DEXAMETHASONE SOD PHOSPHATE 4 MG/ML 1 ML VIAL IV SCH ×3 (00:11→12:34)
[2016-12-02] MEDS: SODIUM CHLORIDE 0.9% 1,000 ML IV SCH (05:57)
[2016-12-02 07:41] LABS: Glucose,Whole Blood 222 mg/dL (75-99)
[2016-12-02 07:52] VITALS: BP 154/73; PULSE 105; RESP 18; TEMP 97.5
[2016-12-02] MEDS: CARVEDILOL 3.125 MG TAB PO SCH (07:54)
[2016-12-02] MEDS: INSULIN LISPRO (humaLOG) 300 UNIT/3 ML VIAL SQ SCH ×2 (07:54→12:35)
[2016-12-02] MEDS: DOCUSATE 100 MG CAP PO SCH (07:54)
[2016-12-02] MEDS: ENOXAPARIN 40 MG/0.4 ML SYRINGE SQ SCH (07:54)
[2016-12-02] MEDS: MORPHINE ORAL SOLN 20 MG/1 ML ORAL SYRINGE PO PRN (08:04)
--- NOTE | 2016-12-02 09:26 | P.CNOR ---
History of Present Illness - [facility] Consult date: 12/02/16 Consult reason: low back pain, back pain History of present illness: Patient is a very pleasant 71-year-old male who has been having back pain over the past several months. The patient says this all started August 14 when he was just walking and stepping over his dog. He says that he felt sudden sharp pain in his back and lower portion. He sought evaluation at that point and had evaluation with his primary care physician as well as orthopedic surgery at an outside institution. He was started on physical therapy and some medications. He was actually having some improvement with steroid medication but was having symptoms of radicular symptoms down his left leg. At that point he underwent an MRI of his lumbar spine he was found have a number of different changes on his MRI including the possibility of metastasis and multiple areas in his spine. Since that time the patient has continued with treatment has been having further workup for cancerous process with metastasis. He recently underwent a bronchoscopy as well for suspected lung CA with spinal metastases. He continues to have some pain at his middle and lower back. Particularly at his lower back. He feels that his symptoms at his left lower extremity have improved to some degree. He says difficulty getting up and around due to the pain in his lower back. His continue with oral pain medications. He denies any specific weakness in his lower extremities. Denies pain in his upper extremity's. He is not having a problem his neck. He feels his pain is between his shoulder blades and the lower portion of his mid back and into his lower back. He had significant pain at his lumbosacral junction as well. Review of Systems As stated per HPI. He denies any chest pain or shortness breath. Denies any abdominal pain. Past Medical History Past Medical History: Cancer, Diabetes Mellitus, Hyperlipidemia, Hypertension Additional Past Medical History / Comment(s): back pain History of Any Multi-Drug Resistant Organisms: None Reported Past Surgical History: Heart Catheterization With Stent, Hernia Repair Additional Past Surgical History / Comment(s): double hernia surgery Past Anesthesia/Blood Transfusion Reactions: Motion Sickness Date of Last Stent Placement:: UNK Past Psychological History: No Psychological Hx Reported Smoking Status: Former smoker Past Alcohol Use History: Occasional Past Drug Use History: None Reported - Past Family History Father Family Medical History: Diabetes Mellitus Mother Family Medical History: Deep Vein Thrombosis (DVT) Medications and Allergies Home Medications Medication Instructions Recorded Confirmed Type Aspirin EC [Ecotrin Low Dose] 162 mg PO DAILY 11/27/16 11/27/16 History Carvedilol [Coreg] 3.125 mg PO BID 11/27/16 11/27/16 History Cyclobenzaprine [Flexeril] 10 mg PO TID PRN 11/27/16 11/27/16 History Allergies Allergy/AdvReac Type Severity Reaction Status Date / Time No Known Allergies Allergy Verified 11/27/16 12:04 Physical Examination Osteopathic Statement: *. No significant issues noted on an osteopathic structural exam other than those noted in the History and Physical/Consult. - L Spine: dermatomal strength & reflexes bilateral Strength: hip flexion: 5/5 (At his back there is no open wounds lacerations or abrasions. He has some mild tenderness diffusely at the midline at the lower thoracic and lumbar spines. He has some paravertebral spasm. His abdomen soft nontender. His lower extremities have sustained dorsal flexion plantar flexion and EHL with sustained hip flexion the extension. His no pain with internal or external rotation of his hips. His upper extremity full active and passive range of motion. His neck is nontender to palpation range of motion. HEENT is normocephalic atraumatic) Results - Labs Labs: Abnormal Lab Results - Last 24 Hours (Table) 12/01/16 12/01/16 12/01/16 Range/Units 11:41 17:49 20:37 POC Glucose (mg/dL) 219 H 202 H 223 H (75-99) mg/dL 12/02/16 Range/Units 07:31 POC Glucose (mg/dL) 222 H (75-99) mg/dL Microbiology - Last 24 Hours (Table) 11/30/16 14:33 Acid Fast Bacilli Smear - Final Bronchial Washings - Right Acid Fast Bacilli Culture - Preliminary H & H 11/27/16 11/28/16 11/29/16 Range/Units 13:20 07:18 07:25 Hgb 14.8 14.4 14.2 (13.0-17.5) gm/dL Hct 45.8 43.9 43.6 (39.0-53.0) % 12/01/16 Range/Units 07:44 Hgb 13.2 (13.0-17.5) gm/dL Hct 41.7 (39.0-53.0) % Coagulation 11/29/16 Range/Units 09:14 INR 1.1 (<1.2) Result Diagrams: 12/01/16 07:44 12/01/16 07:44 - Diagnostic results Comments: Thoracic MRI is reviewed and the results are reviewed as well. He has compression fracture and metastatic lesion at T3 without significant stenosis. There seemed to be some destructive changes at C7 and T2 as well. There is also compression fracture at T9 with pathologic involvement and a compression fracture with pathologic involvement at L3. Assessment and Plan Plan: Multiple spinal metastasis Multiple compression fractures had cervical thoracic and lumbar spine involving C7, T2, T3, T9, and L3 Lower thoracic and lumbar pain Lungs CA with metastasis History of diabetes The patient primary pain symptoms seem to be at his lower thoracic and lumbar spine. This is inhibiting his ability to mobilize. He has a number of spinal metastasis involving his lower cervical upper thoracic lower thoracic and lumbar spine. The primary pain symptoms seem to stem from his lumbar spine. We discussed the different treatment options with this. It could be possible that he may be a candidate for a kyphoplasty if he is not having significant benefit or control of his pain. We like to see if we can control some of his pain symptoms with medications and with bracing. I discussed this with the patient at length. It seems impractical for him to wear a cervical thoracic and lumbar orthosis and he does not feel that he would be able to wear this on a regular basis. He may do well with a high chairback LSO brace which was controllable of his lower trunk and lumbar spine and may alleviate some of his symptoms while he tries to mobilize and protect the lower compression fractures. We will order a chairback LSO for him to wear when he is out of bed. He should continue with his pain control and his medical and hematology oncology management. I discussed the case with Dr. Crespo and he is in agreement. The patient is scheduled to start with radiation next week and we can follow him up on an outpatient basis in the next 2 or 3 weeks for recheck evaluation to discuss further treatment if necessary. Time with Patient: Greater than 30
--- NOTE | 2016-12-02 11:19 | P.PN ---
Subjective 12/01/2016 Progress note being dictated for Dr. Cantrell Acute lower back pain malignancy related 71-year-old male with a known history of hypertension, hyperlipidemia , diabetes type 2 and previous history of smoking and recently being worked up for malignancy presenting for evaluation of low back pain and left thigh pain. Patient was recently diagnosed with lytic lesions to his lumbar spine and scapula and metastatic lesions to the liver and lung. He is continued to have worsening pain since these diagnoses have been made. Patient initially went to orthopedic clinic about 14 weeks ago for back pain and underwent physical therapy and pain management. Patient recently had MRI about 2 weeks ago which showed multiple metastatic lesions and lighting bone lesions. Patient is supposed to follow with Dr. Brito tomorrow. The patient called his primary care physician Dr. Schneider who after discussion with his Hem/Onc specialist Dr. Velarde determined that he should be admitted for pain management, PET scan, and possible initiation of radiation treatment. He denies LE weakness, bladder/bowel incontinence, saddle anesthesia, fever, chills. 11/28/2016 Patient's lower back pain improved with pain medications. Oncology has been consulted. No fever no chills. Patient does have increased leukocytosis today. Denied any cough or sputum production. No dysuria. No complaints of chest pain. No worsening short of breath. Patient still having left hip area pain Chest x-ray showed 10 cm sized right bronchial mass. Imaging studies including MRI and CT scans from [place] will be obtained. 11/29/2016 Patient is still complaining of back pain. [facility] were obtained including MRI of the lumbar spine. Patient was referred to interventional radiology for liver biopsy but suggested lung biopsy is treated. Pulmonary was consulted for bronchoscopy and biopsy. Patient was started on dexamethasone. Radiation oncology has been consulted as well for radiation palliative. Leukocytosis improved today. No fever no chills. No chest pain. No worsening short of breath. Denied any nausea vomiting or abdominal pain 11/30/16 pain is better controlled doing slightly better no new overnight events scheduled for bronchoscopy guided biopsy 12/01/16 maintained on fentanyl, steroids, morphine . States pain improving, able to ambulate-but states mobility/pain fluctuates. evaluated by oncology radiologist, marked for radiation. Orthopedics consulted regarding potential back brace, recommendations pending. Bronchial pathology results pending. at bedside and waiting to speak with Dr.Zak. Objective - Vital Signs Vital signs: Vital Signs Temp 97.9 F 12/01/16 21:53 Pulse 98 12/01/16 21:53 Resp 16 12/01/16 21:53 BP 133/71 12/01/16 21:53 Pulse Ox 95 12/01/16 21:53 Intake & Output 12/01/16 12/01/16 12/02/16 06:59 18:59 06:59 Intake Total 800 400 590 Balance 800 400 590 Intake: Intake, IV Titration 800 400 Amount Sodium Chloride 0.9% 1, 800 400 000 ml @ 50 mls/hr IV . Q20H [facility] Rx#:[id number] Oral 590 Other: Voiding Method Toilet Urinal # Voids 2 - Exam GENERAL:Sitting up in bed, no acute distress, awake alert and oriented.. HEENT: Normocephalic. Neck is supple. Pupils reactive. Oral cavity is moist. Neck reveals no JVD, carotid bruits, or thyromegaly. CHEST EXAMINATION: Trachea midline, fine crackles of the right base. No wheezing. CARDIAC: Normal S1, S2 with no gallops. No murmurs ABDOMEN: Soft. Bowel sounds normal. No organomegaly. No abdominal bruits. Extremities reveal no edema. No clubbing or cyanosis Neurologically awake, alert, oriented x3 with well-coordinated movements. Skin: no rash or skin lesions Musculoskeletal: no joint swelling or deformity, generalized weakness - Labs CBC & Chem 7: 12/01/16 07:44 12/01/16 07:44 Labs: Abnormal Lab Results - Last 24 Hours (Table) 12/01/16 12/01/16 12/01/16 Range/Units 07:44 07:44 07:51 WBC 12.3 H (3.8-10.6) k/uL Neutrophils # 10.2 H (1.3-7.7) k/uL Sodium 132 L (137-145) mmol/L Carbon Dioxide 19 L (22-30) mmol/L BUN 26 H (9-20) mg/dL Glucose 258 H (74-99) mg/dL POC Glucose (mg/dL) 237 H (75-99) mg/dL Calcium 7.8 L (8.4-10.2) mg/dL AST 164 H (17-59) U/L ALT 201 H (21-72) U/L Alkaline Phosphatase 184 H (38-126) U/L Total Protein 5.8 L (6.3-8.2) g/dL Albumin 3.1 L (3.5-5.0) g/dL 12/01/16 12/01/16 12/01/16 Range/Units 11:41 17:49 20:37 WBC (3.8-10.6) k/uL Neutrophils # (1.3-7.7) k/uL Sodium (137-145) mmol/L Carbon Dioxide (22-30) mmol/L BUN (9-20) mg/dL Glucose (74-99) mg/dL POC Glucose (mg/dL) 219 H 202 H 223 H (75-99) mg/dL Calcium (8.4-10.2) mg/dL AST (17-59) U/L ALT (21-72) U/L Alkaline Phosphatase (38-126) U/L Total Protein (6.3-8.2) g/dL Albumin (3.5-5.0) g/dL Microbiology - Last 24 Hours (Table) 11/30/16 14:33 Acid Fast Bacilli Smear - Final Bronchial Washings - Right Acid Fast Bacilli Culture - Preliminary 11/30/16 14:33 Gram Stain - Preliminary Bronchial Washings - Right Bronchial Washings Culture - Preliminary 11/30/16 14:33 Fungal Culture - Preliminary Bronchial Washings - Right Assessment and Plan Plan: #1 lower back pain and left-sided pain due to metastatic lesions #2 recently diagnosed malignancy with lung mass, liver lesions and bone lesions. Most likely lung being primary. #3 hypertension #4 hyperlipidemia #5 diabetes type 2 with hyperglycemia #6 hypovolemic hyponatremia #7 mild hyperkalemia #8 dehydration and volume depletion with elevated BUN #9 mild leukocytosis DVT prophylaxis Plan: Continue on current medication regime ,monitoring and symptomatic treatment. Orthopedic consult in place, recommendations pending. Converted over to oral pain medication and continue to monitor. Family waiting to meet with Dr. Zak stinson. Information given to patient regarding [facility], as they live 50 miles away, to fascilitate radiation treatments. Discharge planning in progress for tomorrow. Prognosis guarded, given multiple complex medical issues. The impression and plan of care has been dictated as directed. : I performed a H&P examination of this patient and discussed the same with the dictator. I agree with the dictator's note. Any additional findings/opinions/ etc. will be noted.
[2016-12-02 12:13] LABS: Glucose,Whole Blood 165 mg/dL (75-99)
--- NOTE | 2016-12-02 12:51 | P.PN ---
Subjective Principal diagnosis: Acute lower back pain malignancy relate, patient seen and evaluated examined during the rounds is still complaining of back pain he tolerated the bronchoscopy very well Patient seen and evaluated examined during follow-up round he is more awake and alert he is breathing comfortably he is tolerated the bronchoscopy fairly well however he does get short of breath and activity and exertion continue to complain of severe pain in the back, biopsy results are reviewed transbronchial biopsies positive for malignancy however final ID and immunohistochemical stains are pending Patient continued to be in pain but severity relatively better under control with the pain medication Objective - Vital Signs Vital signs: Vital Signs Temp 97.5 F L 12/02/16 07:00 Pulse 105 H 12/02/16 07:00 Resp 18 12/02/16 07:00 BP 154/73 12/02/16 07:00 Pulse Ox 99 12/02/16 07:00 Intake & Output 12/01/16 12/02/16 12/02/16 18:59 06:59 18:59 Intake Total 400 990 Output Total 1100 Balance 400 -110 Intake: IV 400 Sodium Chloride 0.9% 1, 400 000 ml @ 50 mls/hr IV . Q20H [facility] Rx#:[id number] Intake, IV Titration 400 Amount Sodium Chloride 0.9% 1, 400 000 ml @ 50 mls/hr IV . Q20H [facility] Rx#:[id number] Oral 590 Output: Urine 1100 Other: Voiding Method Toilet Urinal - Exam PHYSICAL EXAMINATION: Patient is lying in the bed comfortably, no acute distress, awake alert and oriented.. HEENT: Normocephalic. Neck is supple. Pupils reactive. Nostrils clear. Oral cavity is moist. Ears reveal no drainage. Neck reveals no JVD, carotid bruits, or thyromegaly. CHEST EXAMINATION: Trachea is central. Symmetrical expansion. Minimal crackles of the right base. No wheezing. CARDIAC: Normal S1, S2 with no gallops. No murmurs ABDOMEN: Soft. Bowel sounds normal. No organomegaly. No abdominal bruits. Extremities reveal no edema. No clubbing or cyanosis Neurologically awake, alert, oriented x3 with well-coordinated movements. Skin: no rash or skin lesions Musculoskeletal: no joint swelling or deformity. - Labs CBC & Chem 7: 12/01/16 07:44 12/01/16 07:44 Labs: Abnormal Lab Results - Last 24 Hours (Table) 12/01/16 12/01/16 12/02/16 Range/Units 17:49 20:37 07:31 POC Glucose (mg/dL) 202 H 223 H 222 H (75-99) mg/dL 12/02/16 Range/Units 12:11 POC Glucose (mg/dL) 165 H (75-99) mg/dL Microbiology - Last 24 Hours (Table) 11/30/16 14:33 Acid Fast Bacilli Smear - Final Bronchial Washings - Right Acid Fast Bacilli Culture - Preliminary Assessment and Plan Plan: . Stage IV lung cancer, final ID and histopathology is pending based on immunohistochemical staining Right-sided lung masses along with hilar lymphadenopathy Lesions in the spine likely metastatic lung cancer Severe degree of back pain related to above Plan is to monitor clinical course closely pain management awaiting biopsy results and report likely it will turn around to be a new plastic processes prognosis is guarded and poor Time with Patient: Greater than 30
--- NOTE | 2016-12-03 11:40 | P.PN ---
Subjective The patient's pain control continues to improve slowly. He is now more comfortable sitting up in bed. While for weightbearing inhabitation are still uncomfortable, severity of pain is definitely reduced. Objective - Vital Signs Vital signs: Vital Signs Temp 97.5 F L 12/02/16 07:00 Pulse 105 H 12/02/16 07:00 Resp 18 12/02/16 07:00 BP 154/73 12/02/16 07:00 Pulse Ox 99 12/02/16 07:00 Intake & Output 12/02/16 12/03/16 12/03/16 18:59 06:59 18:59 Intake Total 350 Balance 350 Intake: IV 350 Sodium Chloride 0.9% 1, 350 000 ml @ 50 mls/hr IV . Q20H [facility] Rx#:[id number] - Constitutional General appearance: Present: no acute distress - EENT Eyes: Present: EOMI, PERRLA ENT: Present: hearing grossly normal, normal oropharynx - Respiratory Respiratory: right: diminished - Cardiovascular Rhythm: regular Heart sounds: normal: S1, S2 - Gastrointestinal General gastrointestinal: Present: normal bowel sounds, soft - Integumentary Integumentary: Present: normal - Neurologic Neurologic: Present: CNII-XII intact - Musculoskeletal Musculoskeletal: Present: generalized weakness, strength equal bilaterally - Psychiatric Psychiatric: Present: A&O x's 3, appropriate affect - Labs CBC & Chem 7: 12/01/16 07:44 12/01/16 07:44 Labs: Abnormal Lab Results - Last 24 Hours (Table) 12/02/16 Range/Units 12:11 POC Glucose (mg/dL) 165 H (75-99) mg/dL Microbiology - Last 24 Hours (Table) 11/30/16 14:33 Gram Stain - Final Bronchial Washings - Right Bronchial Washings Culture - Final Assessment and Plan (1) Neoplasm related pain Narrative/Plan: The patient's pain control, has improved gradually, on his current regimen of steroids, and fentanyl. He has been switched from IV morphine to Roxanol . Steroids have also been changed over to by mouth. He will continue on a slow taper as an outpatient. Consult was placed to or the spine, given the extensive spinal metastasis. They did evaluate the patient, and case was discussed with them. At this time they have prescribed a brace. They agree with proceeding with palliative radiation. Post radiation, depending on his symptoms, he could potentially be a candidate for kyphoplasty of the most symptomatic areas The patient will begin radiation as an outpatient, on 12/04/16. He has already received [facility] inpatient Status: Acute (2) Metastatic cancer Narrative/Plan: The pathology report confirms malignancy, with small cell cancer favored. Immunostains are pending for further confirmation. The path report was discussed with the patient. Given his symptoms, he will proceed with the palliative radiation first, as planned. It has been discussed with him and his family, that his clinical picture represents stage IV malignancy, and the objective of treatment as prolonged resolution of life and palliation of symptoms. The patient will be following up in the office within the next week or so. Assuming that small cell lung cancer is confirmed, he will start chemotherapy, likely with etoposide and carboplatin, postradiation. Status: Acute
--- NOTE | 2016-12-05 16:38 | DS ---
FINAL DIAGNOSES: 1. Low back pain, left sided pain secondary to metastatic lesions. 2. Recently diagnosed liver malignancy with lung mass, liver lesions and bone lesions. 3. Hypertension. 4. Hyperlipidemia. 5. Diabetes Type 2. DISCHARGE DISPOSITION: The patient is being discharged in stable condition with guarded prognosis. HISTORY OF PRESENT ILLNESS: This 71-year-old gentleman with past medical history of multiple complex medical problems admitted with significant bone pain , mental status, treated symptomatically. The patient improved significantly. The patient would like to return home at this time. The patient seen by multiple consultants. Outpatient follow-up is being arranged including radiation therapy. On exam, vital signs are stable. CARDIOVASCULAR: S1, S2 muffled. Abdomen soft. Nervous system: No focal deficits. DISCHARGE ADVICE AND MEDICATIONS: 1. Diet is cardiac. 2. Activity limited until follow-up. 3. Follow-up with Dr. Schneider in two to three days. 4. Follow-up with Dr. Crespo and radiation oncology as recommended. 5. Ecotrin 160 mg po daily. 6. Dulcolax 5 mg po daily. 7. Coreg 3.125 mg po b.i.d. 8. Flexeril 10 mg t.i..d prn. 9. Hexadrol 4 mg po q.i.d. 10. Colace 100 mg po b.i.d. 11. Fentanyl patch 25 mcg q72 hours. 12. Humalog a.c. and q.h.s. to scale. 13. Morphine prn. Total time taken: 35 minutes. MTDD
== END 2016-12-02 13:50 | disposition home health service (06) | DRG 181 ==
LOC: EC 11:45 → 5ONC 13:15
PROVIDERS: ADMIT Internal Medicine; ATTEND Internal Medicine
PROC: 0B948ZX Drainage of Right Upper Lobe Bronchus, Via Natural or Artificial Opening Endoscopic, Diagnostic (ICD-10-PCS; principal; 2016-11-27)
PROC: 0BB48ZX Excision of Right Upper Lobe Bronchus, Via Natural or Artificial Opening Endoscopic, Diagnostic (ICD-10-PCS; principal; 2016-11-27)
DX: C34.11 Malignant neoplasm of upper lobe, right bronchus or lung (principal); C79.51 Secondary malignant neoplasm of bone; C78.7 Secondary malignant neoplasm of liver and intrahepatic bile duct; E86.0 Dehydration; E11.65 Type 2 diabetes mellitus with hyperglycemia; E87.1 Hypo-osmolality and hyponatremia; I10 Essential (primary) hypertension; E87.5 Hyperkalemia; E78.5 Hyperlipidemia, unspecified; D72.829 Elevated white blood cell count, unspecified; G89.3 Neoplasm related pain (acute) (chronic); Z79.891 Long term (current) use of opiate analgesic; Z79.899 Other long term (current) drug therapy; Z83.3 Family history of diabetes mellitus; Z87.891 Personal history of nicotine dependence
CPT/HCPCS: 31624; 31628; 36415; 70460; 71010; 71020; 71260; 72157; 77295; 77300; 77332; 77334; 80048; 80053; 81003; 82565; 83690; 83735; 84100; 84520; 85025; 85610; 87070; 87102; 87116; 87205; 87206; 87252; 87496; 87498; 87502; 87529; 87541; 87798; 88108; 88305; 88341; 88342; 93005; 94760; 96374; 99284

== ENCOUNTER → 2016-12-05 | Outpatient (CLI) | payer BC, MEDICARE ==
[2016-12-05 12:45] LABS: ALT 385 U/L (21-72); AST 247 U/L (17-59); Alkaline Phosphatase 319 U/L (38-126); Anion Gap 14 mmol/L; Blood Urea Nitrogen 20 mg/dL (9-20); Calcium 8.4 mg/dL (8.4-10.2); Carbon Dioxide 23 mmol/L (22-30); Chloride 99 mmol/L (98-107); Glucose 317 mg/dL (74-99); Non-African American GFR(MDRD) >60 (>60 ml/min/1.73 sqM); Sodium 136 mmol/L (137-145); Total Bilirubin 2.3 mg/dL (0.2-1.3); Total Protein 6.7 g/dL (6.3-8.2)
[2016-12-05 12:57] LABS: CHCM 32.4; HCT 47.2 % (39.0-53.0); MCH 27.7 pg (25.0-35.0); MCHC 31.9 g/dL (31.0-37.0); MCV 86.9 fL (80.0-100.0); Mean Platelet Volume 7.7; RBC 5.43 m/uL (4.30-5.90); RDW 13.8 % (11.5-15.5); WBC 15.7 k/uL (3.8-10.6)
== END | disposition home or self-care (01) ==
LOC: LABWHC1 11:48
PROVIDERS: ATTEND Nurse Practitioner
DX: R79.89 Other specified abnormal findings of blood chemistry (principal); R91.8 Other nonspecific abnormal finding of lung field
CPT/HCPCS: 36415; 80053; 85027